=== PATIENT | male | born 1985 | race Caucasian/White ===

== ENCOUNTER 2021-09-10 07:48 | Outpatient (REF) | payer SELFPAY ==
[2021-09-10 08:14] LABS: Binax Internal Control QC Valid; Binax Now Covid-19 Ag Negative (Negative)
== END 2021-09-10 07:49 | disposition home or self-care (01) ==
LOC: HO.LAB 07:48
PROVIDERS: Visit Provider Internal Medicine
DX: Z20.822 Contact with and (suspected) exposure to COVID-19 (principal)
CPT/HCPCS: 36415

== ENCOUNTER 2022-02-27 16:41 | Emergency (ER) | payer OTHER, SELFPAY ==
--- NOTE | 2022-02-27 | ECG_ITS ---
Test Reason : CHEST PAIN Blood Pressure : / mmHG Vent. Rate : 094 BPM Atrial Rate : 094 BPM P-R Int : 136 ms QRS Dur : 086 ms QT Int : 364 ms P-R-T Axes : 060 036 037 degrees QTc Int : 455 ms Normal sinus rhythm with sinus arrhythmia Normal ECG No previous ECGs available Referred By: Generic ED Physician Electronically Signed By:ALEC POWELL
--- NOTE | ~2022-02-27 | XR_ITS ---
EXAMINATION: XR CHEST CLINICAL INFORMATION: Pain. COMPARISON: None TECHNIQUE: Frontal view of the chest was obtained. FINDINGS: No significant abnormality is noted involving the heart, lungs, mediastinum, bony thorax or soft tissues. XR/XR chest 1V IMPRESSION: Unremarkable chest exam
[2022-02-27 16:47] VITALS: BP 148/97; PULSE 103; RESP 24; TEMP 36.8; O2SAT 100; BMI 25.8
[2022-02-27 17:03] LABS: MANUAL DIFF FLAG NO
[2022-02-27 17:05] LABS: Basophils Percent Auto 0.3 % (0-2); Eosinophils Percent Auto 0.1 % (0-4); Hematocrit 45.2 % (42.0-52.0); Hemoglobin 16.2 g/dl (14.0-18.0); Imm Gran Abs Auto 0.03 X10*3/uL (0.00-0.03); Imm Gran Pct Auto 0.2 % (0.0-0.4); Lymphocytes Absolute Auto 1.8 X10*3/uL (1.2-4.9); Mean Corpuscular HGB Conc 35.8 g/dl (31.0-36.0); Mean Corpuscular Hemoglobin 31.2 pg (27.0-33.0); Mean Corpuscular Volume 87.1 fL (80.0-98.0); Mean Platelet Volume 9.4 fL (9.4-12.4); Monocytes Absolute Auto 0.6 X10*3/uL (0.1-1.2); Neutrophils Absolute Auto 9.6 x10*3/uL (2.0-8.3); Neutrophils Percent Auto 79.4 % (45-73); Platelet Count 237 X10*3/uL (160-400); Red Blood Count 5.19 X10*6/uL (4.60-5.80); White Blood Count 12.1 X10*3/uL (4.8-10.8)
[2022-02-27 17:27] LABS: Anion Gap 21 (12-20); Blood Urea Nitrogen 15 mg/dL (9-16); Carbon Dioxide 21 mmol/L (22-29); Chloride 97 mmol/L (96-108); Creatinine Clr Calc Pharmacy 114.7; Estimated Glomerular Filt Rate > 60; Glucose Random 99 mg/dL (60-115); Potassium 3.8 mmol/L (3.3-5.1); Sodium 135 mmol/L (135-145)
[2022-02-27 17:32] LABS: Troponin-I High Sensitivity < 3.5 ng/L (<3.5-35.0)
--- NOTE | 2022-02-27 17:43 | ED.CHESTPAIN ---
HPI - Chest Pain General Chief Complaint: Chest Pain Stated Complaint: Chest pain/L arm pain/Vomiting Time Seen by Provider: 02/27/22 17:42 Source: patient and family Mode of arrival: ambulatory Limitations: no limitations History of Present Illness HPI narrative: 37 yo male with hx of anxiety, alcohol abuse, GERD recent heavy drinking - drank a lot yesterday felt very sick this morning bad he has been anxious all day, developed chest pain that radiated to his L arm. He is trying to cut down on his drinking. He denies recent travel. He is very anxious. He refuses any further blood draws or IV. MD complaint: chest pain Pertinent past history: other (alcohol abuse, anxiety, GERD) Onset (ago): day(s) (this morning, worsened about 20 minutes ago) Timing of current episode: constant Prior episodes: No Onset: during rest Pain location: left chest Pain radiation: left arm Severity: moderate Quality: tightness Relieving factors: nothing Exacerbating factors: nothing Context: other (recent ETOH abuse) Associated symptoms: nausea, dyspnea and other (anxiety) Treatment prior to arrival: none Related Data Previous Rx's Medication Instructions Recorded famotidine 20 mg tablet (Pepcid) 20 mg PO DAILY PRN abdominal 02/27/22 discomfort #30 tabs hydroxyzine HCl 50 mg tablet 50 mg PO TID PRN anxiety #20 tabs 02/27/22 ondansetron 4 mg disintegrating 4 mg PO Q8H PRN nausea and 02/27/22 tablet vomiting #20 tabs Allergies Allergy/AdvReac Type Severity Reaction Status Date / Time honey Allergy Vomiting Verified 02/27/22 16:52 Review of Systems Review of Systems: Constitutional : No Weight loss, No Fever, No Chills ENT/Mouth : No sore throat, No Rhinorrhea Eyes: No Eye Pain, No Swelling Cardiovascular : pos Chest Pain, pos SOB, no Dyspnea on Exertion, No Orthopnea, No Edema, No Palpitations Respiratory : No Cough, No Sputum Gastrointestinal : pos Nausea, No Vomiting, No Diarrhea, No abdominal Pain, No Hematochezia, No Melena Genitourinary : No Dysuria, No Urinary Frequency Musculoskeletal : No joint pain, No Myalgias, No Joint Swelling Skin : No Skin Lesions, No rash Neuro : No Weakness, No Numbness, No Dizziness, No Headache Psych : pos Anxiety/Panic, No Depression Heme/Lymph: No Bruising, No Lymphadenopathy Endocrine : No Polyuria, No Polydipsia All other systems reviewed and are negative [facility] Past Medical History Attestation statement: The following information was validated with the patient. Medical History Alcohol abuse Anxiety GERD (gastroesophageal reflux disease) Social History Social History (Updated 02/27/22 @ 18:00 by Sarah Peguero DO) Alcohol intake: current Patient Tobacco Use Status: Never used Tobacco Advance Directives: No Advance Directives Information Provided: No Physical Exam Vital Signs: Vital Signs: Last Vital Signs Temp 98.2 F 02/27/22 16:47 Pulse 103 H 02/27/22 16:47 Resp 24 H 02/27/22 16:47 BP 148/97 H 02/27/22 16:47 Pulse Ox 100 02/27/22 16:47 O2 Del Method 02/27/22 16:47 BMI result Body Mass Index 25.8 Appearance: Alert. Oriented X3. No acute distress. Anxious Eyes: Pupils equal, round and reactive to light. ENT: Pharynx normal. Neck: Normal inspection. Neck supple. CVS: Normal heart rate and rhythm. Pulses normal. Respiratory: No respiratory distress. Breath sounds normal. Abdomen: Soft and mild epigastric ttp no rebound or guarding Skin: Skin warm and dry. Normal skin color. Normal skin turgor. Extremities: No lower extremity edema. No calf ttp Neuro: Oriented X 3. No motor deficit. No sensory deficit. Course Course Course Narrative: patient feels much better stable for DC MDM - Chest Pain MDM Narrative Medical decision making narrative: 37 yo male with hx of anxiety, alcohol abuse, GERD recent heavy drinking comes in with c/o not feeling well today along with anxiety, chest pain that has worsened in the last 20 minutes. He has no ACS risk factors, he has no signs of DVT, he is not hypoxic, doubt PE (tachycardia from anxiety). He has distal pulses intact doubt dissection. I suspect anxiety/esophagitis or pancreatitis from ETOH. He is refusing any further lab draws including repeat troponin to rule out ACS - we discussed one troponin would not be enough but he still refuses. PO medications for symptomatic relief ordered. Lab Data Result diagrams: 02/27/22 16:58 02/27/22 16:58 Labs: Lab Results 02/27/22 02/27/22 02/27/22 Range/Units 16:58 16:58 16:58 WBC 12.1 H (4.8-10.8) X10*3/uL RBC 5.19 (4.60-5.80) X10*6/uL Hgb 16.2 (14.0-18.0) g/dl Hct 45.2 (42.0-52.0) % MCV 87.1 (80.0-98.0) fL MCH 31.2 (27.0-33.0) pg MCHC 35.8 (31.0-36.0) g/dl RDW 12.0 (11.0-16.0) % Plt Count 237 (160-400) X10*3/uL MPV 9.4 (9.4-12.4) fL Immature Gran % (Auto) 0.2 (0.0-0.4) % Neut % (Auto) 79.4 H (45-73) % Lymph % (Auto) 15.0 L (20-40) % [place] % (Auto) 5.0 (2-11) % Eos % (Auto) 0.1 (0-4) % Baso % (Auto) 0.3 (0-2) % Lymph # (Auto) 1.8 (1.2-4.9) X10*3/uL [place] # (Auto) 0.6 (0.1-1.2) X10*3/uL Eos # (Auto) 0.0 (0.0-0.4) X10*3/uL Baso # (Auto) 0.0 (0.0-0.2) X10*3/uL Abs Immat Gran (auto) 0.03 (0.00-0.03) X10*3/uL Absolute Neuts (auto) 9.6 H (2.0-8.3) x10*3/uL Absolute Nucleated RBC 0.000 (0.0-0.012) X10*3/uL Nucleated RBC % (auto) 0.0 (0.0-0.2) /100WBC Sodium 135 (135-145) mmol/L Potassium 3.8 (3.3-5.1) mmol/L Chloride 97 (96-108) mmol/L Carbon Dioxide 21 L (22-29) mmol/L Anion Gap 21 H (12-20) BUN 15 (9-16) mg/dL Creatinine 0.91 (0.5-1.4) mg/dL Estim Creat Clear Calc 114.7 Estimated GFR > 60 Random Glucose 99 (60-115) mg/dL Calcium 10.0 (8.4-10.2) mg/dL Troponin I High Sens < 3.5 (<3.5-35.0) ng/L Lipase 11 (8-78) U/L ECG Data ECG #1: Attestation: I personally reviewed and interpreted this ECG as follows: ECG interpretation date: 02/27/22 ECG interpretation time: 17:43 Interpretation: Rate: 94 Rhythm: NSR Cosmos: normal Normal P waves. Normal CHASIDY. Normal QRS complex. ST T wave : normal no CLIFFORD qTC: normal prior studies: no acute ischemia The study has been interpreted contemporaneously by me. . Discharge Plan Discharge Clinical Impression: Atypical chest pain, Gastroesophageal reflux disease, Anxiety Patient Disposition: Home, Self-Care Instructions: Chest Pain (ED), Gastroesophageal Reflux Disease (ED), Anxiety (ED) Additional Instructions: return to ED for any worsening symptoms or concerns we were unable to draw a second test for you heart. Given this we cannot 100% say that testing for your heart was normal if you change your mind please return for further testing. Please follow up with your doctor Prescriptions: New famotidine [Pepcid] 20 mg tablet 20 mg PO DAILY PRN (Reason: abdominal discomfort) Qty: 30 0RF ondansetron 4 mg tablet,disintegrating 4 mg PO Q8H PRN (Reason: nausea and vomiting) Qty: 20 0RF hydroxyzine HCl 50 mg tablet 50 mg PO TID PRN (Reason: anxiety) Qty: 20 0RF Stand Alone Forms: Work/School Release
[2022-02-27] MEDS: Magnesium Hydrox/Alum Hydrox 30 ML ORAL.SUSP 15 ML PO (18:23)
[2022-02-27] MEDS: LORazepam 1 MG TABLET PO (18:23)
[2022-02-27] MEDS: Famotidine 20 MG TABLET PO (18:23)
[2022-02-27] MEDS: Ondansetron ODT 4 MG TAB.RAPDIS TRANSLINGU (18:23)
[2022-02-27] MEDS: Lidocaine HCl Viscous 2 % 15 ML SOLUTION MUCOUS MEM (18:24)
--- NOTE | 2022-02-27 18:29 | PC.NURSE ---
patient a/o x4 . pupils equal and reactive . lungs clear . skin clammy , patient appears anxious . abdomen soft non-distended . positive bowel sounds . patient appears anxious and has history of panic attacks . patient has been medicated . aware of plan of care.
[2022-02-27 18:36] LABS: Lipase 11 U/L (8-78)
== END 2022-02-27 20:09 | disposition home or self-care (01) ==
PROVIDERS: Emergency Provider Emergency Medicine
DX: R07.89 Other chest pain (principal); K21.9 Gastro-esophageal reflux disease without esophagitis; F41.9 Anxiety disorder, unspecified; F10.10 Alcohol abuse, uncomplicated
CPT/HCPCS: 36415; 71045; 80048; 83690; 84484; 85025; 93005; 99283; 99284

== ENCOUNTER 2023-09-09 16:53 | Emergency (ER) | payer OTHER, SELFPAY ==
[2023-09-09 17:28] VITALS: BP 146/98; PULSE 133; RESP 18; TEMP 37.1; O2SAT 96; BMI 26.9
--- NOTE | 2023-09-09 17:28 | ED.GENADULT ---
HPI - General Adult General Chief complaint: ETOH/Substance Use Stated complaint: cold, alcohol withdrawal Related Data Previous Rx's Medication Instructions Recorded famotidine 20 mg tablet (Pepcid) 20 mg PO DAILY PRN abdominal 02/27/22 discomfort #30 tabs hydroxyzine HCl 50 mg tablet 50 mg PO TID PRN anxiety #20 tabs 02/27/22 ondansetron 4 mg disintegrating 4 mg PO Q8H PRN nausea and 02/27/22 tablet vomiting #20 tabs Allergies Allergy/AdvReac Type Severity Reaction Status Date / Time honey Allergy Vomiting Verified 09/09/23 17:27 [facility] Past Medical History Onset Date is defined in the Problem List Problems that require an onset date and time if occurred within 24 hrs of arrival to the ED Aortic Dissection and Rupture; Neurologic impairment; Cardiopulmonary Arrest; Endotracheal Intubation; Insertion or Replacement of Mechanical Circulatory Assist Device Medical History Alcohol abuse Anxiety GERD (gastroesophageal reflux disease) Social History Social History (Updated 02/27/22 @ 18:00 by Elizabeth Peguero DO) Alcohol intake: current Patient Tobacco Use Status: Never used Tobacco Advance Directives: No Advance Directives Information Provided: No Physical Exam ED Vital Signs: BMI result Body Mass Index 26.9 Course Course Course Narrative: This is a rapid medical exam. Deferred additional HPI, ROS, PE to primary provider. 38 yo male with no known medical history here with concern for URI symptoms, also has been drinking daily (sleeve of whiskey). Recently left detox. Unsure if he is looking for detox... Last drink 30 minutes DRAW HAND Will obtain labs, RIVERA, viral testing Tachycardic in triage, bp stable, does not appear to be in active withdrawal. Medical Decision Making Lab Data 09/09/23 17:58 09/09/23 17:58 Labs: Lab Results 09/09/23 Range/Units 17:58 WBC 4.8 (4.8-10.8) X10*3/uL RBC 4.90 (4.60-5.80) X10*6/uL Hgb 15.6 (14.0-18.0) g/dl Hct 44.9 (42.0-52.0) % MCV 91.6 (80.0-98.0) fL MCH 31.8 (27.0-33.0) pg MCHC 34.7 (31.0-36.0) g/dl RDW 15.0 (11.0-16.0) % Plt Count 156 L D (160-400) X10*3/uL MPV 9.5 (9.4-12.4) fL Immature Gran % (Auto) 0.4 (0.0-0.4) % Neut % (Auto) 57.0 (45-73) % Lymph % (Auto) 32.7 (20-40) % [place] % (Auto) 8.9 (2-11) % Eos % (Auto) 0.4 (0-4) % Baso % (Auto) 0.6 (0-2) % Lymph # (Auto) 1.6 (1.2-4.9) X10*3/uL [place] # (Auto) 0.4 (0.1-1.2) X10*3/uL Eos # (Auto) 0.0 (0.0-0.4) X10*3/uL Baso # (Auto) 0.0 (0.0-0.2) X10*3/uL Abs Immat Gran (auto) 0.02 (0.00-0.03) X10*3/uL Absolute Neuts (auto) 2.8 (2.0-8.3) x10*3/uL Absolute Nucleated RBC 0.000 (0.0-0.012) X10*3/uL Nucleated RBC % (auto) 0.0 (0.0-0.2) /100WBC Sodium 144 (135-145) mmol/L Potassium 3.9 (3.3-5.1) mmol/L Chloride 102 (96-108) mmol/L Carbon Dioxide 27 (22-29) mmol/L Anion Gap 19 (12-20) BUN 11 (9-16) mg/dL Creatinine 0.66 (0.5-1.4) mg/dL Estim Creat Clear Calc 156.6 Estimated GFR > 60 Random Glucose 98 (60-115) mg/dL Calcium 9.8 (8.4-10.2) mg/dL Magnesium 2.0 (1.6-2.6) mg/dL Total Bilirubin 0.2 (0.0-1.0) mg/dL Direct Bilirubin < 0.2 (0.0-0.5) mg/dL AST 61 H (5-37) U/L ALT 57 H (0-40) U/L Alkaline Phosphatase 101 (39-117) U/L Total Protein 8.1 H (6.5-8.0) g/dL Albumin 4.6 (3.5-5.0) g/dL Ethyl Alcohol 311 H* mg/dL Influenza Type A (PCR) NEGATIVE (Negative) Influenza Type B (PCR) NEGATIVE (Negative) RSV RNA Qual (PCR) NEGATIVE (Negative) SARS-CoV-2 RNA (RT-PCR) NEGATIVE (Negative) Discharge Plan Discharge Clinical Impression: Alcohol use disorder Patient Disposition: Left W/O Completing Treatment Prescriptions: No Action famotidine [Pepcid] 20 mg tablet 20 mg PO DAILY PRN (Reason: abdominal discomfort) Qty: 30 0RF ondansetron 4 mg tablet,disintegrating 4 mg PO Q8H PRN (Reason: nausea and vomiting) Qty: 20 0RF hydroxyzine HCl 50 mg tablet 50 mg PO TID PRN (Reason: anxiety) Qty: 20 0RF Discharge Date/Time: 09/09/23 21:02
== END 2023-09-09 21:02 | disposition left against medical advice (07) ==
PROVIDERS: Emergency Provider Emergency Medicine; PCP Physician Assistant
DX: F10.10 Alcohol abuse, uncomplicated (principal); Y90.8 Blood alcohol level of 240 mg/100 ml or more; Z20.822 Contact with and (suspected) exposure to COVID-19; Z20.828 Contact with and (suspected) exposure to other viral communicable diseases; Z79.899 Other long term (current) drug therapy
CPT/HCPCS: 0241U; 36415; 80048; 80076; 80307; 83735; 85025; 93005; 99283

== ENCOUNTER → 2023-09-09 17:33 | Outpatient (BNV) | payer OTHER, SELFPAY | PROVIDERS: Emergency Provider Emergency Medicine; PCP Physician Assistant; Visit Provider Internal Medicine Cardiovascular Disease | DX: R00.0 Tachycardia, unspecified (principal) | CPT/HCPCS: 93010 ==

== ENCOUNTER 2023-11-01 17:58 | Emergency (ER) | payer SELFPAY ==
[2023-11-01 18:02] VITALS: BP 116/85; BP 140/88; PULSE 125; PULSE 142; RESP 16; TEMP 36.6; O2SAT 100; O2SAT 98; BMI 26.6
[2023-11-01 18:22] VITALS: RESP 14
--- NOTE | 2023-11-01 18:23 | PC.NURSE ---
Pt presents to the ED reporting daily drinking x1 month after losing his job. Pt states he has been to detox before and that it helped him to an extent. Pt is also reporting SI without a plan. Pt is tachy and with some anxiety, reporting he has gone through withdrawal before. Pt is calm and cooperative, appears to be in no apparent distress at this time. Respirations even and unlabored, continue plan of care for medical clearance then CARE team assessment
[2023-11-01] MEDS: LORazepam 1 MG TABLET 2 MG PO ×2 (18:41→20:09)
--- NOTE | 2023-11-01 19:48 | ED.GENADULT ---
HPI - General Adult General Chief complaint: Psychiatric Symptoms Stated complaint: SEEKING DETOX SI Time Seen by Provider: 11/01/23 18:37 History of Present Illness HPI narrative: The patient is a 38-year-old male with a history of alcoholism. He says that about 3 months ago last July he did a 28 detox program in [place]. He was sober for a while after that but has been drinking heavily for at least the last month. He says he had been working at [employer] but had trouble with transportation and so lost his job about a month ago. He says he has been staying at home and staying alone in his apartment drinking 20 nips per day for the last month. He says that yesterday he decided he needed to stop drinking and so stopped drinking. Today he felt very shaky and thought he might be starting to experience alcohol withdrawal so he called 911. He also feels depressed because of his loss of a job and his drinking. He feels suicidal although he does not have a plan. The patient says he has had a cough for the last month. He is a pack-a-day smoker. He does not think he has had a fever Related Data Home Medications Medication Instructions Recorded Confirmed sertraline 50 mg tablet 50 mg PO DAILY 11/01/23 11/01/23 Allergies Allergy/AdvReac Type Severity Reaction Status Date / Time honey Allergy Vomiting Verified 11/01/23 18:26 Review of Systems Review of Systems: Yes all other systems are reviewed and are negative REPLACED BY [facility] Past Medical History Medical History Alcohol abuse Anxiety GERD (gastroesophageal reflux disease) Social History Social History (Updated 02/27/22 @ 18:00 by Elizabeth Peguero DO) Alcohol intake: current Alcohol intake frequency: 3 or more drinks per day Alcohol type: hard liquor Patient Tobacco Use Status: Never used Tobacco Smoked in Last 30 Days: Yes Use of substances other than those prescribed or required for medical reasons: No Advance Directives: No Advance Directives Information Provided: No Physical Exam ED Vital Signs: Vital Signs - 24 hr 11/01/23 18:02 11/01/23 18:22 11/01/23 21:00 Temperature 97.8 F 98.9 F Pulse Rate 142 H 111 H Respiratory Rate 16 14 17 Blood Pressure 116/85 142/98 H Pulse Oximetry 98 94 Oxygen Delivery Method Room Air Room Air BMI result Body Mass Index 26.6 Const Other: The patient is awake and alert. He seems mildly restless. He is pleasant and cooperative. He does not seem in overt distress. HENMT Other: Posterior pharynx is unremarkable. Mucous membranes moist. Face is symmetrical. Eyes Other: Pupils are mildly large but reactive to light. Extraocular movements intact. Neck Other: No JVD. Moving his neck easily. Resp Effort & Inspection: normal respiratory effort Auscultation: clear to auscultation bilaterally Cardio Rate: regular rate Rhythm: regular rhythm Heart sounds: S1 normal heart sound present and S2 normal heart sound present GI Other: Abdomen is soft and nontender Skin Other: Skin is pale and dry Neuro Other: The patient is awake, alert, oriented, appropriate. Mental status seems clear. His pupils seem mildly large but are reactive. Face is symmetrical. Speech is clear. Gait is steady. Mildly tremulous Extrem Other: No peripheral edema. Medications Administered Discontinued Medications Generic Name Dose Route Start Last Admin Trade Name Agusto PRN Reason Stop Dose Admin Lidocaine HCl 1 appl 11/01/23 21:19 11/01/23 22:01 Lidocaine 4 % Cream Kit TOPICAL 11/01/23 21:20 1 appl ONCE ONE Administration Protocol Lorazepam 2 mg 11/01/23 18:37 11/01/23 18:41 Lorazepam 1 Mg Tablet PO 11/01/23 18:38 2 mg ONCE ONE Administration Lorazepam 2 mg 11/01/23 19:46 11/01/23 20:09 Lorazepam 1 Mg Tablet PO 11/01/23 19:47 2 mg ONCE ONE Administration Medical Decision Making Medical Decision Making [facility] Narrative: The patient is a 38-year-old alcoholic who arrived by ambulance stating that he was feeling very shaky and depressed. He reported that he had been taking 20 nips daily for the last month but that he stopped drinking yesterday because he realized he was drinking too much. [place] depressed and had vague suicidal ideation but no definite plan. On arrival the patient had a heart rate of 142. He was not hypertensive. He was anxious and requesting something for his anxiety. The patient was given 2 mg of oral lorazepam. This was repeated awhile later. The patient was extremely anxious about the prospect of phlebotomy at 1 point said that he might prefer to leave simply to avoid a needlestick. Ultimately he consented to allowing us to apply LMX and he was then phlebotomized. The patient's labs show an alcohol level of 156. Urine tox screen is negative. He said that he had been coughing a lot over the last month. He has a negative chest x-ray. Normal white count and differential. I do not think he has a pneumonia or other significant infectious process. I think his tachycardia is much more likely related to anxiety and some degree of early alcohol withdrawal. The patient says he has never had an alcohol withdrawal seizure. The patient at this point is medically clear for evaluation by the care team. I will be signing the patient out at the end of my shift. Lab Data 11/01/23 21:54 11/01/23 21:54 Labs: Lab Results 11/01/23 11/01/23 Range/Units 21:54 Unknown WBC 6.1 (4.8-10.8) X10*3/uL RBC 5.18 (4.60-5.80) X10*6/uL Hgb 16.8 (14.0-18.0) g/dl Hct 47.4 (42.0-52.0) % MCV 91.5 (80.0-98.0) fL MCH 32.4 (27.0-33.0) pg MCHC 35.4 (31.0-36.0) g/dl RDW 13.0 (11.0-16.0) % Plt Count 166 (160-400) X10*3/uL MPV 9.0 L (9.4-12.4) fL Immature Gran % (Auto) 0.5 H (0.0-0.4) % Neut % (Auto) 65.9 (45-73) % Lymph % (Auto) 25.3 (20-40) % [place] % (Auto) 8.0 (2-11) % Eos % (Auto) 0.0 (0-4) % Baso % (Auto) 0.3 (0-2) % Lymph # (Auto) 1.5 (1.2-4.9) X10*3/uL [place] # (Auto) 0.5 (0.1-1.2) X10*3/uL Eos # (Auto) 0.0 (0.0-0.4) X10*3/uL Baso # (Auto) 0.0 (0.0-0.2) X10*3/uL Abs Immat Gran (auto) 0.03 (0.00-0.03) X10*3/uL Absolute Neuts (auto) 4.0 (2.0-8.3) x10*3/uL Absolute Nucleated RBC 0.000 (0.0-0.012) X10*3/uL Nucleated RBC % (auto) 0.0 (0.0-0.2) /100WBC Sodium 139 (135-145) mmol/L Potassium 3.8 (3.3-5.1) mmol/L Chloride 101 (96-108) mmol/L Carbon Dioxide 23 (22-29) mmol/L Anion Gap 19 (12-20) BUN 9 (9-16) mg/dL Creatinine 0.78 (0.5-1.4) mg/dL Estim Creat Clear Calc 128.4 Estimated GFR > 60 Random Glucose 100 (60-115) mg/dL Calcium 9.4 (8.4-10.2) mg/dL Total Bilirubin 0.5 (0.0-1.0) mg/dL AST 42 H (5-37) U/L ALT 31 (0-40) U/L Alkaline Phosphatase 87 (39-117) U/L Total Protein 8.4 H (6.5-8.0) g/dL Albumin 4.5 (3.5-5.0) g/dL Urine Color Yellow Urine Appearance Clear Urine pH 7.0 (5.0-9.0) Ur Specific [place] 1.020 (1.005-1.025) Urine Protein 300 (3+) H (Neg-Trace) mg/dL Urine Glucose (UA) Negative (Negative) mg/dL Urine Ketones Trace (Negative) mg/dL Urine Blood Trace H (Negative) Urine Nitrite Negative (Negative) Ur Leukocyte Esterase Negative (Negative) Urine RBC 3-5 H (0-2) /HPF Urine WBC 6-10 H (0-5) /HPF Ur Squamous Epith Cells 3-5 (0-2) /HPF Urine Bacteria None Seen (None Seen) Hyaline Casts 0-2 (0-2) /LPF Urine Opiates Screen Not Detected (Not Detect) Urine Fentanyl Screen Not Detected (Not Detect) Ur Barbiturates Screen Not Detected (Not Detect) Ur Phencyclidine Scrn Not Detected (Not Detect) Ur Amphetamines Screen Not Detected (Not Detect) U Benzodiazepines Scrn Not Detected (Not Detect) Urine Cocaine Screen Not Detected (Not Detect) U Marijuana (THC) Screen Not Detected (Not Detect) Ethyl Alcohol 156 mg/dL Influenza Type A (PCR) NEGATIVE (Negative) Influenza Type B (PCR) NEGATIVE (Negative) RSV RNA Qual (PCR) NEGATIVE (Negative) SARS-CoV-2 RNA (RT-PCR) NEGATIVE (Negative) Discharge Plan Discharge Clinical Impression: Depression, Anxiety, Alcohol use disorder Patient Disposition: Still a Patient Prescriptions: No Action sertraline 50 mg tablet 50 mg PO DAILY Interventions: [place]-Suicide Risk Severity Scale Last Done: 11/01/23 18:19
[2023-11-01 20:05] LABS: Appearance Urine Clear; Color Urine Yellow; Glucose Urine UA Negative (Negative); Leukocyte Esterase Urine Negative (Negative); Nitrite Urine Negative (Negative); UMIC TRIGGER UACC YES; Urine Blood Trace (Negative); Urine Ketones Trace mg/dL (Negative); Urine Protein 300 (3+) mg/dL (Neg-Trace)
[2023-11-01 20:09] LABS: Amphetamine Screen Urine Not Detected (Not Detect); Barbiturates, Urine Not Detected (Not Detect); Benzodiazepines Screen Urine Not Detected (Not Detect); Cannabinoid Screen Urine Not Detected (Not Detect); Cocaine Screen Urine Not Detected (Not Detect); Fentanyl, urine Not Detected (Not Detect); Opiate Screen Urine Not Detected (Not Detect); Phencyclidine Screen Urine Not Detected (Not Detect)
[2023-11-01 20:37] LABS: Bacteria Urine None Seen (None Seen); Hyaline Casts Urine 0-2 /LPF (0-2); UACC Culture Trigger YES
[2023-11-01 20:38] LABS: Influenza A PCR NEGATIVE (Negative); Influenza B PCR NEGATIVE (Negative); Resp Syncy Virus RNA Qual PCR NEGATIVE (Negative); SARS COV2 PCR INHOUSE NEGATIVE (Negative)
[2023-11-01 21:00] VITALS: BP 142/98; PULSE 111; RESP 17; TEMP 37.2; O2SAT 94
[2023-11-01 22:00] LABS: Basophils Percent Auto 0.3 % (0-2); Hematocrit 47.4 % (42.0-52.0); Hemoglobin 16.8 g/dl (14.0-18.0); Imm Gran Abs Auto 0.03 X10*3/uL (0.00-0.03); Imm Gran Pct Auto 0.5 % (0.0-0.4); Lymphocytes Absolute Auto 1.5 X10*3/uL (1.2-4.9); Lymphocytes Percent Auto 25.3 % (20-40); MANUAL DIFF FLAG NO; Mean Corpuscular HGB Conc 35.4 g/dl (31.0-36.0); Mean Corpuscular Hemoglobin 32.4 pg (27.0-33.0); Mean Corpuscular Volume 91.5 fL (80.0-98.0); Monocytes Absolute Auto 0.5 X10*3/uL (0.1-1.2); Neutrophils Percent Auto 65.9 % (45-73); Platelet Count 166 X10*3/uL (160-400); Red Blood Count 5.18 X10*6/uL (4.60-5.80); White Blood Count 6.1 X10*3/uL (4.8-10.8)
[2023-11-01] MEDS: Lidocaine 4 % Cream KIT 1 APPL TOPICAL (22:01)
[2023-11-01 22:15] LABS: Alanine Aminotransferase 31 U/L (0-40); Albumin Level 4.5 g/dL (3.5-5.0); Alkaline Phosphatase 87 U/L (39-117); Anion Gap 19 (12-20); Aspartate Amino Transferase 42 U/L (5-37); Bilirubin Total 0.5 mg/dL (0.0-1.0); Blood Urea Nitrogen 9 mg/dL (9-16); Calcium 9.4 mg/dL (8.4-10.2); Carbon Dioxide 23 mmol/L (22-29); Chloride 101 mmol/L (96-108); Creatinine Clr Calc Pharmacy 128.4; Estimated Glomerular Filt Rate > 60; Ethanol 156 mg/dL; Glucose Random 100 mg/dL (60-115); Potassium 3.8 mmol/L (3.3-5.1); Sodium 139 mmol/L (135-145); Total Protein 8.4 g/dL (6.5-8.0)
[2023-11-01 23:36] VITALS: BP 134/81; PULSE 107; RESP 17; TEMP 37.1; O2SAT 98
[2023-11-01] MEDS: chlordiazePOXIDE HCl 5 MG CAPSULE 10 MG PO (23:48)
[2023-11-02 04:05] VITALS: BP 148/97; PULSE 100; RESP 17; TEMP 36.6; O2SAT 97
[2023-11-02] MEDS: chlordiazePOXIDE HCl 25 MG CAPSULE 50 MG PO ×3 (04:10→14:29)
[2023-11-02 04:46] VITALS: BP 164/103; PULSE 106; RESP 14; TEMP 36.8; O2SAT 98
[2023-11-02 06:08] VITALS: BP 138/88; PULSE 71; RESP 14; TEMP 36.4; O2SAT 96
--- NOTE | 2023-11-02 07:10 | PC.NURSE ---
Assumed care of patient at 0700, patient appears to be sleeping, respirations even and unlabored, no apparent distress. Per previous RN, patient did need to be medicated per CIWA scale. Continue plan of care for potential detox bed placement
[2023-11-02 08:18] VITALS: BP 127/84; PULSE 80; RESP 20; TEMP 36.8; O2SAT 97
--- NOTE | 2023-11-02 11:58 | PC.NURSE ---
Pts initital CIWA this morning did not need to be treated, second CIWA scored higher, patient given Librium with positive effects at this time
[2023-11-02] MEDS: LORazepam 1 MG TABLET 2 MG PO (13:28)
--- NOTE | 2023-11-02 15:12 | PC.NURSE ---
Pt requesting to leave, DO aware. Pt does have some shakes, but other symptoms have resolved, see latest CIWA
== END 2023-11-02 15:18 | disposition home or self-care (01) ==
PROVIDERS: Emergency Provider Emergency Medicine; PCP Physician Assistant
DX: F32.A Depression, unspecified (principal); F41.9 Anxiety disorder, unspecified; F10.20 Alcohol dependence, uncomplicated; Y90.6 Blood alcohol level of 120-199 mg/100 ml; Z11.52 Encounter for screening for COVID-19; Z20.828 Contact with and (suspected) exposure to other viral communicable diseases
CPT/HCPCS: 0241U; 36415; 80053; 80307; 81001; 81003; 85025; 87086; 99285; S9485

== ENCOUNTER 2023-11-14 16:15 | Emergency (ER) | payer SELFPAY ==
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
--- NOTE | ~2023-11-14 | CT_ITS ---
EXAMINATION: CT ANGIOGRAM CHEST CLINICAL INFORMATION: Trauma COMPARISON: None available. TECHNIQUE: Multiple axial images were obtained through the chest after the administration of 85 mL of Omnipaque 350 intravenous contrast. Extensive vascular post-processing including two-dimensional and three-dimensional reformatted images were created and reviewed on an independent workstation. This CT examination was performed using dose optimization techniques as appropriate, variously including the following: *Automated exposure control *Adjustment of mA and/or kV according to patient size (this includes techniques or standardized protocols for targeted exams where dose is matched to indication/reason for exam; i.e. extremities or head) *Use of iterative reconstruction technique DLP: 626 mGy-cm FINDINGS: The lungs are clear. No pleural effusion pleural thickening or pneumothorax. Normal heart size. No pericardial effusion. Normal thoracic aorta and pulmonary arteries. No adenopathy. No chest wall mass or enlarged axillary lymph nodes. No fracture. CT/CT angio chest aorta IMPRESSION: Unremarkable examination. Fleischner guidelines were followed.
--- NOTE | ~2023-11-14 | CT_ITS ---
EXAMINATION: CT CERVICAL SPINE WITHOUT CONTRAST CLINICAL INFORMATION: Fall. Head laceration. Confusion. Pain. COMPARISON: None available. TECHNIQUE: Noncontrast computed tomography of the cervical spine was performed. This CT examination was performed using dose optimization techniques as appropriate, variously including the following: *Automated exposure control *Adjustment of mA and/or kV according to patient size (this includes techniques or standardized protocols for targeted exams where dose is matched to indication/reason for exam; i.e. extremities or head) *Use of iterative reconstruction technique DLP: 478.83 mGy-cm FINDINGS: Cervical spinal alignment is anatomic in the sagittal projection. The vertebral bodies demonstrate preserved stature. Intervertebral disc space heights are preserved. The facet joints demonstrate anatomic alignment bilaterally. The C1-C2 relationship is anatomic. The dens is intact. Prevertebral soft tissue is normal in appearance. Paraspinal soft tissue is normal in appearance. There is no acute cervical spine fracture. The mastoid air cells are well-aerated. Lung apices are clear. The thyroid gland is normal in appearance. CT/CT cervical spine wo IV con IMPRESSION: No acute osseous cervical spine abnormality. Fleischner guidelines were followed.
--- NOTE | ~2023-11-14 | CT_ITS ---
EXAMINATION: CT FACIAL BONES WITHOUT CONTRAST CLINICAL INFORMATION: Head laceration. Fall. Increased confusion. Pain. COMPARISON: None available. TECHNIQUE: Noncontrast computed tomography of the facial bones was performed. This CT examination was performed using dose optimization techniques as appropriate, variously including the following: *Automated exposure control *Adjustment of mA and/or kV according to patient size (this includes techniques or standardized protocols for targeted exams where dose is matched to indication/reason for exam; i.e. extremities or head) *Use of iterative reconstruction technique DLP: 1652 mGy-cm FINDINGS: There is no facial bone fracture. The paranasal sinuses are well aerated. There is minimal mucosal disease along the anterior margin of the dominant right sphenoid sinus. The nasal septum is deviated towards the left. There is a leftward projecting bony spur. The mastoid air cells are well aerated. The orbits are symmetric and within normal limits. There is right frontal scalp/right periorbital soft tissue swelling. The visualized brain parenchyma is normal in appearance. CT/CT facial bones wo IV con IMPRESSION: No acute facial bone fracture. There is right frontal scalp/right periorbital soft tissue swelling
--- NOTE | ~2023-11-14 | CT_ITS ---
EXAMINATION: CT ANGIOGRAM ABDOMEN AND PELVIS CLINICAL INFORMATION: Trauma COMPARISON: None available. TECHNIQUE: Multiple axial images were obtained through the abdomen and pelvis following the administration of 85 mL of Omnipaque 350 intravenous contrast. Images were reviewed on a dedicated 3-D workstation. This CT examination was performed using dose optimization techniques as appropriate, variously including the following: *Automated exposure control *Adjustment of mA and/or kV according to patient size (this includes techniques or standardized protocols for targeted exams where dose is matched to indication/reason for exam; i.e. extremities or head) *Use of iterative reconstruction technique DLP: 626 mGy-cm FINDINGS: The abdominal aorta is normal in caliber. Celiac axis and SMA and JONNA are patent. There are single patent renal arteries bilaterally. The common internal and external iliac and common femoral arteries are patent Normal liver, gallbladder, spleen, pancreas, adrenal glands and kidneys. Normal bladder and prostate gland. Normal small and large bowel. Normal appendix. No ascites or free air. No hernia. No fracture. CT/CT angio abdomen pelvis IMPRESSION: Unremarkable examination. Fleischner guidelines were followed.
[2023-11-14 16:18] VITALS: BP 142/84; PULSE 115; O2SAT 100
[2023-11-14 16:24] VITALS: BP 112/87; PULSE 84; RESP 16; TEMP 37; O2SAT 100; BMI 27.4
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
[2023-11-14] MEDS: 0.9 % Sodium Chloride 500 ML 999 ML IV (17:02)
[2023-11-14 17:04] LABS: MANUAL DIFF FLAG NO
[2023-11-14 17:05] LABS: Basophils Percent Auto 0.6 % (0-2); Eosinophils Percent Auto 0.4 % (0-4); Imm Gran Abs Auto 0.02 X10*3/uL (0.00-0.03); Imm Gran Pct Auto 0.3 % (0.0-0.4); Lymphocytes Absolute Auto 1.8 X10*3/uL (1.2-4.9); Mean Corpuscular HGB Conc 34.9 g/dl (31.0-36.0); Mean Corpuscular Hemoglobin 32.8 pg (27.0-33.0); Mean Corpuscular Volume 94.1 fL (80.0-98.0); Mean Platelet Volume 9.2 fL (9.4-12.4); Monocytes Absolute Auto 0.6 X10*3/uL (0.1-1.2); Monocytes Percent Auto 8.3 % (2-11); Neutrophils Absolute Auto 4.3 x10*3/uL (2.0-8.3); Neutrophils Percent Auto 63.4 % (45-73); Platelet Count 226 X10*3/uL (160-400); Red Blood Count 4.57 X10*6/uL (4.60-5.80); Red Cell Distribution Width 12.6 % (11.0-16.0); White Blood Count 6.8 X10*3/uL (4.8-10.8)
[2023-11-14 17:13] LABS: INTERNATIONAL NORM RATIO 0.9 (0.9-1.1); Prothrombin Time 10.6 SEC (11.1-13.3)
[2023-11-14 17:25] LABS: Alanine Aminotransferase 28 U/L (0-40); Albumin Level 4.3 g/dL (3.5-5.0); Alkaline Phosphatase 81 U/L (39-117); Aspartate Amino Transferase 31 U/L (5-37); Bilirubin Direct < 0.2 mg/dL (0.0-0.5); Bilirubin Total 0.2 mg/dL (0.0-1.0); Ethanol 337 mg/dL; Lipase 62 U/L (8-78); Total Protein 7.7 g/dL (6.5-8.0)
[2023-11-14 17:36] LABS: Appearance Urine Clear; Color Urine Yellow; Glucose Urine UA Negative (Negative); Leukocyte Esterase Urine Negative (Negative); Nitrite Urine Negative (Negative); PH 5.5 (5.0-9.0); Specific Gravity - Urine <= 1.005 (1.005-1.025); Urine Blood Negative (Negative); Urine Ketones Negative (Negative); Urine Protein Negative (Neg-Trace)
[2023-11-14 17:38] LABS: Bacteria Urine None Seen (None Seen); Hyaline Casts Urine 0-2 /LPF (0-2); RBC Urine 0-2 /HPF (0-2); Squamous Epithelial Cell Urine 0-2 /HPF (0-2); WBC Urine 0-5 /HPF (0-5)
[2023-11-14] MEDS: iohexoL 350 MG/ML 100 ML INFUS..BTL 85 ML IV (17:54)
[2023-11-14 18:59] VITALS: BP 131/73; PULSE 105; RESP 18; TEMP 36.9; O2SAT 98
[2023-11-14] MEDS: Ibuprofen 400 MG TABLET PO (21:07)
[2023-11-14] MEDS: Acetaminophen 325 MG TABLET 975 MG PO (21:08)
[2023-11-14 21:23] LABS: Anion Gap 14 (12-20); Blood Urea Nitrogen 11 mg/dL (9-16); Calcium 9.3 mg/dL (8.4-10.2); Carbon Dioxide 25 mmol/L (22-29); Chloride 109 mmol/L (96-108); Estimated Glomerular Filt Rate > 60; Glucose Random 98 mg/dL (60-115); Potassium 3.5 mmol/L (3.3-5.1); Sodium 144 mmol/L (135-145)
[2023-11-15 01:08] VITALS: BP 147/94; PULSE 94; RESP 16; TEMP 36.8; O2SAT 98
[2023-11-15] MEDS: Lidocaine HCl Viscous 2 % 15 ML SOLUTION MUCOUS MEM (01:24)
[2023-11-15] MEDS: Magnesium Hydrox/Alum Hydrox 30 ML ORAL.SUSP 15 ML PO (01:24)
[2023-11-15] MEDS: Ibuprofen 400 MG TABLET PO (06:45)
[2023-11-15] MEDS: Acetaminophen 325 MG TABLET 650 MG PO (06:45)
== END 2023-11-15 07:11 | disposition home or self-care (01) ==
PROVIDERS: Emergency Medicine; Emergency Provider Student in an Organized Health Care Education/Training Program; PCP Physician Assistant
DX: S00.81XA Abrasion of other part of head, initial encounter (principal); R51.9 Headache, unspecified; R07.89 Other chest pain; R22.0 Localized swelling, mass and lump, head; R41.0 Disorientation, unspecified; M54.2 Cervicalgia; W01.10XA Fall on same level from slipping, tripping and stumbling with subsequent striking against unspecified object, initial encounter; Y93.9 Activity, unspecified; Y92.410 Unspecified street and highway as the place of occurrence of the external cause; Y99.8 Other external cause status; Z79.899 Other long term (current) drug therapy
CPT/HCPCS: 36415; 70450; 70486; 71275; 72125; 74174; 80048; 80076; 80307; 81001; 82550; 83690; 85025; 85610; 96360; 96361; 99285; Q9967

== ENCOUNTER 2023-12-04 22:26 | Emergency (ER) | payer MEDICAID, SELFPAY ==
--- NOTE | ~2023-12-04 | CT_ITS ---
EXAMINATION: CT cervical spine wo IV con, CT head/brain wo IV con INDICATION INFORMATION: Reason for Exam etoh, multiple falls COMPARISON: None TECHNIQUE: Separate noncontrast CT examinations of the head and cervical spine were performed. Coronal and sagittal images were created for each examination at the technologist workstation. This CT examination was performed using dose optimization techniques as appropriate, variously including the following: *Automated exposure control *Adjustment of mA and/or kV according to patient size (this includes techniques or standardized protocols for targeted exams where dose is matched to indication/reason for exam; i.e. extremities or head) *Use of iterative reconstruction technique DLP: 1157.79 mGy-cm FINDINGS: Head: No acute osseous or soft tissue abnormality. The mastoid air cells and visualized portions of the paranasal sinuses are well aerated. Acute right holohemispheric subdural hematoma measuring up to 1 cm in thickness and smaller left cerebral convexity subdural hematoma, primarily along the left temporal lobe measuring up to 4 mm in thickness with subdural blood products extending along the superior left tentorial leaflet measuring up to 1 cm. There are also small subdural blood products layering along the falx and right tentorial leaflet. Trace hyperdensity along the clivus measuring up to 3 mm in thickness likely represent small subdural hematoma. No significant mass effect or midline shift. There is no evidence of acute territorial infarction. Ricks to white matter differentiation is well preserved. No hydrocephalus. No significant volume loss. There is no abnormal attenuation within the brain parenchyma. Cervical spine: There is a small avulsion fracture involving the posterior medial aspect of the left occipital condyle (series 502 image 81 and series 4 image 55). Thin hyperdensity along the left greater than right ventral aspect of the cervical spinal canal at the craniocervical junction likely represents small volume epidural hemorrhage. There is no other evidence of acute cervical spine fracture. Vertebral bodies remain normal in height. Slight reversal of usual cervical lordosis. Mild multilevel cervical spondylosis. No pre- or paravertebral soft tissue abnormality is identified. Visualized portions of the lung apices are unremarkable. The thyroid gland is unremarkable. CT/CT cervical spine wo IV con IMPRESSION: 1. Acute right holohemispheric subdural hematoma measuring up to 1 cm in thickness and smaller left cerebral convexity subdural hematoma primarily along the left temporal lobe measuring up to 4 mm in thickness with larger subdural hematoma extending along the superior left tentorial leaflet. Small falcine, right tentorial, and retroclival subdural blood products are also identified. No significant mass effect or midline shift. 2. There is a small avulsion fracture involving the posteromedial aspect of the left occipital condyle. Thin hyperdensity along the left greater than right ventral spinal canal at the craniocervical junction likely represents small volume epidural hemorrhage without evidence of significant spinal canal stenosis 3. No other evidence of cervical spine fracture or traumatic malalignment.
--- NOTE | 2023-12-04 22:37 | ECG_ITS ---
Test Reason : FALL Blood Pressure : / mmHG Vent. Rate : 095 BPM Atrial Rate : 095 BPM P-R Int : 138 ms QRS Dur : 088 ms QT Int : 406 ms P-R-T Axes : 071 044 053 degrees QTc Int : 510 ms Normal sinus rhythm Prolonged QT Abnormal ECG When compared with ECG of 09-SEP-2023 17:51, QT has lengthened Referred By: Paula Wei Electronically Signed By:DIVYA GRAHAM MD
[2023-12-04 22:44] VITALS: BP 141/90; BP 168/102; PULSE 93; PULSE 94; RESP 28; TEMP 36.6; O2SAT 100; O2SAT 99; BMI 26.3
[2023-12-04 23:04] LABS: MANUAL DIFF FLAG NO
[2023-12-04 23:06] LABS: Basophils Percent Auto 0.2 % (0-2); Hematocrit 41.2 % (42.0-52.0); Hemoglobin 14.5 g/dl (14.0-18.0); Imm Gran Abs Auto 0.03 X10*3/uL (0.00-0.03); Imm Gran Pct Auto 0.3 % (0.0-0.4); Lymphocytes Percent Auto 8.8 % (20-40); Mean Corpuscular HGB Conc 35.2 g/dl (31.0-36.0); Mean Corpuscular Hemoglobin 32.4 pg (27.0-33.0); Mean Platelet Volume 10.6 fL (9.4-12.4); Monocytes Absolute Auto 0.7 X10*3/uL (0.1-1.2); Neutrophils Absolute Auto 9.9 x10*3/uL (2.0-8.3); Neutrophils Percent Auto 84.7 % (45-73); Platelet Count 103 X10*3/uL (160-400); Red Blood Count 4.48 X10*6/uL (4.60-5.80); Red Cell Distribution Width 11.9 % (11.0-16.0); White Blood Count 11.7 X10*3/uL (4.8-10.8)
[2023-12-04 23:14] LABS: INTERNATIONAL NORM RATIO 0.9 (0.9-1.1); Prothrombin Time 10.8 SEC (11.1-13.3)
[2023-12-04 23:21] VITALS: BP 133/91; PULSE 76
[2023-12-04 23:21] LABS: Alanine Aminotransferase 31 U/L (0-40); Albumin Level 4.5 g/dL (3.5-5.0); Alkaline Phosphatase 84 U/L (39-117); Anion Gap 19 (12-20); Aspartate Amino Transferase 104 U/L (5-37); Bilirubin Direct 0.3 mg/dL (0.0-0.5); Bilirubin Total 1.2 mg/dL (0.0-1.0); Blood Urea Nitrogen 14 mg/dL (9-16); Calcium 9.7 mg/dL (8.4-10.2); Carbon Dioxide 22 mmol/L (22-29); Chloride 97 mmol/L (96-108); Creatinine Clr Calc Pharmacy 143.6; Estimated Glomerular Filt Rate > 60; Ethanol < 10 mg/dL; Glucose Random 103 mg/dL (60-115); Magnesium 2.2 mg/dL (1.6-2.6); Potassium 3.9 mmol/L (3.3-5.1); Sodium 134 mmol/L (135-145); Total Protein 8.2 g/dL (6.5-8.0)
[2023-12-04 23:23] VITALS: BP 160/98; PULSE 113
[2023-12-04 23:24] VITALS: BP 145/94; PULSE 122
[2023-12-04 23:25] LABS: Troponin-I High Sensitivity < 2.7 ng/L (<3.5-35.0)
[2023-12-04 23:42] LABS: D Dimer High Sensitivity 274 NG/ML
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
[2023-12-04 23:45] LABS: Appearance Urine Cloudy; Color Urine Dark Yellow; Glucose Urine UA 100 mg/dL (Negative); Leukocyte Esterase Urine Negative (Negative); Nitrite Urine Negative (Negative); PH 5.5 (5.0-9.0); Specific Gravity - Urine >= 1.030 (1.005-1.025); UMIC TRIGGER UACC YES; Urine Blood Large (3+) (Negative); Urine Ketones 80 mg/dL (Negative); Urine Protein 300 (3+) mg/dL (Neg-Trace)
[2023-12-04 23:53] LABS: Amphetamine Screen Urine Not Detected (Not Detect); Barbiturates, Urine Not Detected (Not Detect); Benzodiazepines Screen Urine Not Detected (Not Detect); Cannabinoid Screen Urine Not Detected (Not Detect); Cocaine Screen Urine Not Detected (Not Detect); Fentanyl, urine Not Detected (Not Detect); Opiate Screen Urine Not Detected (Not Detect); Phencyclidine Screen Urine Not Detected (Not Detect)
[2023-12-04 23:56] LABS: Bacteria Urine None Seen (None Seen); Granular Casts Urine Present; Other Crystals Urine Present; RBC Urine 0-2 /HPF (0-2); WBC Urine 0-5 /HPF (0-5)
[2023-12-04 23:57] VITALS: BP 150/90; PULSE 94; RESP 17; TEMP 36.6; O2SAT 100
[2023-12-05] MEDS: 0.9 % Sodium Chloride 1,000 ML 999 ML IVCONT (00:34)
[2023-12-05] MEDS: Morphine Sulfate 2 MG/ML CARTRIDGE 1 MG IVPUSH (00:34)
[2023-12-05] MEDS: LORazepam 2 MG/ML VIAL IVPUSH (00:35)
[2023-12-05 00:39] LABS: COVID-19 Test Negative (Negative); IDNOW Serial# 152EDE1D
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
[2023-12-05 02:44] VITALS: BP 144/81; PULSE 90; RESP 19; TEMP 36.5; O2SAT 98
== END 2023-12-05 02:35 | disposition short-term general hospital (02) ==
PROVIDERS: Emergency Provider Emergency Medicine
DX: S02.113A Unspecified occipital condyle fracture, initial encounter for closed fracture (principal); S06.5XAA Traumatic subdural hemorrhage with loss of consciousness status unknown, initial encounter; R55 Syncope and collapse; R51.9 Headache, unspecified; M54.2 Cervicalgia; F10.239 Alcohol dependence with withdrawal, unspecified; Y90.9 Presence of alcohol in blood, level not specified; W01.10XA Fall on same level from slipping, tripping and stumbling with subsequent striking against unspecified object, initial encounter; Y93.9 Activity, unspecified; Y92.9 Unspecified place or not applicable; Y99.8 Other external cause status; Z11.52 Encounter for screening for COVID-19; Z79.899 Other long term (current) drug therapy
CPT/HCPCS: 36415; 70450; 72125; 80048; 80076; 80307; 81001; 83605; 83735; 84484; 85025; 85379; 85610; 87635; 93005; 96374; 96375; 99285; J2060; J2270

== ENCOUNTER → 2023-12-04 22:37 | Outpatient (BNV) | payer MEDICAID, SELFPAY | PROVIDERS: Emergency Provider Emergency Medicine; Visit Provider Internal Medicine Cardiovascular Disease | DX: R94.31 Abnormal electrocardiogram [ECG] [EKG] (principal) | CPT/HCPCS: 93010 ==

== ENCOUNTER 2023-12-14 00:49 | Emergency (ER) | payer MEDICAID, SELFPAY ==
--- NOTE | ~2023-12-14 | CT_ITS ---
EXAMINATION: CT HEAD WITHOUT CONTRAST CT CERVICAL SPINE WITHOUT CONTRAST CLINICAL INFORMATION: Worsening cough cervical spine pain history of fracture. Question of intracranial bleeding COMPARISON: 12/04/2023 and 11/14/2023 TECHNIQUE: Contiguous axial imaging was performed from the skull base to vertex without intravenous administration of contrast. Contiguous axial imaging was performed from the upper chest through the skull base without intravenous administration of contrast. Coronal and sagittal reformats were obtained at the acquisition workstation. This CT examination was performed using dose optimization techniques as appropriate, variously including the following: *Automated exposure control. *Adjustment of mA and/or kV according to patient size (this includes techniques or standardized protocols for targeted exams where dose is matched to indication/reason for exam; i.e. extremities or head). *Use of iterative reconstruction technique. DLP: 764.32 mGy-cm portal brain and 427.94mGy-cm for cervical spine FINDINGS: Head: Residual subdural hematoma along the posterior aspect of parietal lobe and cerebellar convexities without mass effect or midline shift. The maximum dimension of hematoma measured now 0.8 cm. There is minimal amount of blood seen through the posterior aspect of the falx cerebri. There is no evidence of acute intracranial hemorrhage or edematous territorial infarction. Ricks-white matter differentiation is preserved. There is no abnormal attenuation within the brain parenchyma. The ventricles are normal in morphology and size. No evidence for obstructive hydrocephalus. No abnormal mass effect or midline shift. No extra-axial fluid collections. No acute soft tissue or osseous abnormalities. The mastoid air cells and visualized paranasal sinuses are clear. Cervical Spine: There is no interval change in appearance of small avulsion fracture of the posterior/medial aspect of the left occipital condyle there is straightening of cervical lordosis and possible small amount of epidural hemorrhage seen along the proximal superior cervical canal stable since previous study. There are no new fractures or subluxations identified. Correlate with MRI. Otherwise, there is anatomic alignment of the vertebral bodies and posterior elements. No evidence of acute fracture or subluxation. The vertebral body heights and disc spaces are maintained. There is no prevertebral soft tissue swelling. The thyroid gland and remaining cervical soft tissues are within normal limits. The lung apices demonstrate no abnormalities. CT/CT cervical spine wo IV con IMPRESSION: 1. Residual subdural hematoma along the posterior aspect of the parietal lobe and cerebellar convexities without mass effect or midline shift. 2. Stable appearance of small avulsion fracture of the posterior/medial aspect of the left occipital condyle. 3. Possible small amount of epidural hemorrhage seen along the proximal superior cervical canal stable since previous study. Correlate with MRI.
[2023-12-14 00:54] VITALS: BP 148/76; PULSE 98; O2SAT 97
[2023-12-14 00:58] VITALS: BP 147/112; PULSE 97; RESP 16; TEMP 36.6; O2SAT 97; BMI 26.9
[2023-12-14 04:46] VITALS: BP 141/96; PULSE 79; RESP 16; TEMP 36.7; O2SAT 99
--- NOTE | 2023-12-14 08:25 | ED_ITS ---
HPI - Neck Pain/Injury General Chief Complaint: Neck Pain/Injury Stated Complaint: neck pain Source: patient and RN notes reviewed Mode of arrival: ambulatory Limitations: no limitations History of Present Illness HPI Narrative: This is a 38-year-old male, with a history of recent subdural hematomas and alcohol use disorder, who presents emergency department with complaints of persistent headache and neck pain. He reports that last week, he was seen here in the ER and was diagnosed with a brain bleed and was transferred to [facility], where he was admitted, and was told he had a neck fracture, placed in collar and was d/c with f/u on December 31. He is here today with ongoing headaches and neck pain. No new head trauma. He denies changes in vision, numbness, tingling, fevers, chills, weakness, chest pain, shortness of breath, abdominal pain, nausea, vomiting or diarrhea. He has not drank etoh since last week. No other drug use. Per ER note patient was seen at [facility] with complaints of alco hol withdrawal, severe headache after a fall and a syncopal episode. Prior to this, patient states that he decided to stop drinking all alcohol. He had an alcohol withdrawal seizure as well as subdural hematomass. His CT scan at that time revealed bilateral subdural hematomas, as well as a left occipital condyle fracture. He was transferred to [facility] at that time. No other complaints or concerns at this time. MD complaint: neck pain and neck injury Onset (ago): day(s) Relieving factors: none Exacerbating factors: none Associated symptoms: none Treatments prior to arrival: none Related Data Home Medications ?Medication ?Instructions ?Recorded ?Confirmed sertraline 50 mg tablet 50 mg PO DAILY 11/01/23 11/01/23 Previous Rx's ?Medication ?Instructions ?Recorded tranexamic acid 650 mg tablet 650 mg PO DAILY 21 days #21 tabs 12/14/23 Allergies Allergy/AdvReac Type Severity Reaction Status Date / Time honey Allergy Vomiting Verified 12/14/23 01:03 Review of Systems Review of Systems: Yes all other systems are reviewed and are negative Constitutional: Constitutional: Reports as per [facility] Past Medical History Attestation statement: The following information was validated with the patient. Medical History Alcohol abuse GERD (gastroesophageal reflux disease) Anxiety Social History Social History Alcohol intake: current Alcohol intake frequency: 3 or more drinks per day Alcohol type: hard liquor Patient Tobacco Use Status: Never used Tobacco Advance Directives: No Advance Directives Information Provided: No Physical Exam Vital Signs: Vital Signs: Last Vital Signs Temp 0 F L 12/14/23 13:21 Pulse 0 L 12/14/23 13:21 Resp 0 L 12/14/23 13:21 BP 0/0 L 12/14/23 13:21 Pulse Ox 98 12/14/23 09:38 O2 Del Method Room Air 12/14/23 09:38 BMI result Body Mass Index 26.9 Const: General: cooperative, comfortable and no acute distress Orientation/consciousness: patient oriented x3 Limitations: no limitations HEENT: Head: Yes normal to inspection, Yes normocephalic and Yes atraumatic Ears: hearing grossly normal bilaterally General nose exam: Normal external nose present Face and sinus: Yes normal facial exam Mouth: Normal oral and palatal mucosa present, oropharynx normal and moist mucous membranes Throat: Yes posterior oropharynx normal Eyes: General: appearance normal, both eyes and all related structures Eyelids: Yes eyelids normal Conjunctivae: conjunctivae normal Sclerae: sclerae normal Pupils: Equal, round and reactive pupils present EOM: EOMs intact bilaterally Neck: Other: Cervical collar in place Neck: Yes normal visual inspection Lymphatic: no lymphadenopathy noted Chest: Chest palpation & inspection: normal inspection of the chest Resp: Effort & Inspection: normal respiratory effort and able to speak in complete sentences Auscultation: clear to auscultation bilaterally, no crackles, no rales, no rhonchi and no wheezes Cardio: Rate: regular rate Rhythm: regular rhythm Heart sounds: S1 normal heart sound present and S2 normal heart sound present GI: Inspection: Yes normal to inspection Skin: General skin exam: no rashes or lesions noted Trauma: no lacerations or abrasions Wounds: no wounds Neuro: General: patient oriented x3 and moves all extremities Cranial nerves: Yes CN's II-XII intact bilaterally and Yes Equal, round and reactive pupils present Cognition (Neuro): normal cognition Gait exam (Neuro): Normal gait present Motor exam (neuro): 5/5 motor strength present throughout and Pronator motor function not present Extrem: General: Yes normal to inspection Right upper extremity: normal to inspection Left upper extremity: normal to inspection Right lower extremity: normal to inspection Left lower extremity: normal to inspection Course Reevaluation(s) Reevaluation #1: Received medical records from [facility], on December 04 and was discharged on December 06. During his prognosis, he had a epidural hematoma, fracture of the occipital condyle and subdural hematoma. Neurosurgery was consulted and patient was admitted to neuro enter care for close monitoring. He progressed well in his mental status was improving. There has no new injuries identified on tertiary survey. He was given pain medications, nausea was controlled. OT and PT worked with patient and felt as though outpatient services were safe for this patient. Patient was advised to follow-up in 4 weeks in the neurosurgical office and he will also need PCP for re-evaluation. At this time, we still await for head CT and C-spine CT patient remained stable. He is sleeping, under no acute distress Time: 12:16 Reevaluation #2: CT head revealing residual subdural hematoma along the posterior aspect of the parietal lobe and cerebellar convexities without mass effect or midline shift. There has a stable appearance of small avulsion fracture of the posterior/medial aspect of the left occipital condyle. There has a possible small amount of epidural hemorrhage seen along the proximal superior cervical canal stable since previous study recommending correlation with MRI. I reviewed this image with my attending physician, Dr. Peguero, who recommends reaching out to Neurosurgery at [facility] to compare images. Page sent out to [facility] Neurosurgery. Time: 12:29 Reevaluation #3: Spoke to [facility] Neurosurgery who was able to review the images, stating that it looks better however they are recommending TXA 650 mg daily for the next 21 days and advised to follow-up at follow-up appointment. 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 Given strict return precautions. Patient understands and agrees with plan. He will follow-up with neurosurgery as scheduled on January 01, 2024. Time: 15:34 Medical Decision Making Medical Decision Making MDM Narrative: This is a 38-year-old male, with a history of alcohol use disorder, who presents emergency department with neck pain and headache since yesterday. Patient states that he was recently seen at [facility] after having an alcohol withdrawal seizure and states that he had multiple brain bleeds as well as a cervical spine fracture. He was placed in a cervical collar and was advised to follow up with OT/PT and keep neck in collar for the next 4 weeks. Patient was seen and evaluated by me after being in the emergency room for approximately 6 hours. Vital signs within normal limits. He is neurologically intact. We will attempt to obtain records from [facility] for further assessment. Given ongoing headache and neck pain, will obtain CT head and neck for further evaluation. Plan: CT head, CT neck Differential Diagnosis Differential Diagnoses: The differential diagnosis associated with the presentation includes ICH, cervical spine fracture, migraine headache, tension headache, muscle spasm Admission/Observation Consideration of admission/observation: Escalation of care including admission/observation considered Radiology Impression Discussion of test interpretation with radiology: I have reviewed the radiologist's reading. Radiologist Impression: FINDINGS: Head: Residual subdural hematoma along the posterior aspect of parietal lobe and cerebellar convexities without mass effect or midline shift. The maximum dimension of hematoma measured now 0.8 cm. There is minimal amount of blood seen through the posterior aspect of the falx cerebri. There is no evidence of acute intracranial hemorrhage or edematous territorial infarction. Ricks-white matter differentiation is preserved. There is no abnormal attenuation within the brain parenchyma. The ventricles are normal in morphology and size. No evidence for obstructive hydrocephalus. No abnormal mass effect or midline shift. No extra-axial fluid collections. No acute soft tissue or osseous abnormalities. The mastoid air cells and visualized paranasal sinuses are clear. Cervical Spine: There is no interval change in appearance of small avulsion fracture of the posterior/medial aspect of the left occipital condyle there is straightening of cervical lordosis and possible small amount of epidural hemorrhage seen along the proximal superior cervical canal stable since previous study. There are no new fractures or subluxations identified. Correlate with MRI. Otherwise, there is anatomic alignment of the vertebral bodies and posterior elements. No evidence of acute fracture or subluxation. The vertebral body heights and disc spaces are maintained. There is no prevertebral soft tissue swelling. The thyroid gland and remaining cervical soft tissues are within normal limits. The lung apices demonstrate no abnormalities. CT/CT cervical spine wo IV con IMPRESSION: 1. Residual subdural hematoma along the posterior aspect of the parietal lobe and cerebellar convexities without mass effect or midline shift. 2. Stable appearance of small avulsion fracture of the posterior/medial aspect of the left occipital condyle. 3. Possible small amount of epidural hemorrhage seen along the proximal superior cervical canal stable since previous study. Correlate with MRI. Dictated By: Mary aMcias MD Discharge Plan Discharge Clinical Impression: Subdural hematoma Patient Disposition: Left W/O Completing Treatment Prescriptions: New tranexamic acid 650 mg tablet 650 mg PO DAILY 21 Days Qty: 21 0RF No Action sertraline 50 mg tablet 50 mg PO DAILY Interventions: LWBS Worksheet Last Done: 12/14/23 07:17 ED Discharge Assessment Last Done: 12/14/23 13:21 Discharge Date/Time: 12/14/23 13:24
--- NOTE | 2023-12-14 09:35 | PC.NURSE ---
this nurse took over care of patient at 9am, pt recently evicted from home and is homeless, was brought in by ems from [facility] in [place], neck collar intact, +csm to extremities, pt to CT scan as ordered, vitals to be updated by tech.
[2023-12-14 09:38] VITALS: BP 129/77; PULSE 67; RESP 20; TEMP 36.6; O2SAT 98
--- NOTE | 2023-12-14 12:43 | PC.NURSE ---
pt stated he was wanting to know whats going on as he had fallen asleep, this nurse spoke with provider who stated just waiting for ct scans to result. this nurse went to tell the patient and he was not found in his room.
[2023-12-14 13:21] VITALS: BP 0/0; PULSE 0; RESP 0; TEMP -17.7; TEMP 0
== END 2023-12-14 13:24 | disposition left against medical advice (07) ==
PROVIDERS: Emergency Provider Emergency Medicine; PCP Physician Assistant
DX: I62.00 Nontraumatic subdural hemorrhage, unspecified (principal); R51.9 Headache, unspecified; M54.2 Cervicalgia
CPT/HCPCS: 70450; 72125; 99283; 99284

== ENCOUNTER 2025-05-18 02:33 | Inpatient (IN) | payer SELFPAY ==
[2025-05-18] VITALS (9 sets, daily range): BP systolic 135–153; BP diastolic 79–95; PULSE 86–106; RESP 16–18; TEMP 36.2–36.8; O2SAT 96–99; BMI 30.7; BMI 30.4
--- NOTE | ~2025-05-18 | CT_ITS ---
CLINICAL HISTORY: fall ?head strike CT head without contrast Comparison: 12/14/2023 Findings: No intra-axial mass, midline shift, hydrocephalus, or acute hemorrhage. No significant atrophy-like change or white matter disease. The visualized paranasal sinuses and mastoid air cells are normal. The orbits are within normal limits. No skull fracture. IMPRESSION: 1. No acute intracranial findings. This document has been electronically signed by: Christian Gastelum MD on 05/18/2025 09:42:10
--- NOTE | ~2025-05-18 | CT_ITS ---
CLINICAL HISTORY: fall ?head strike CT cervical spine without contrast Comparison: CT/SD/SR - CT CERVICAL SPINE WITHOUT IV CONTRAST - 12/14/2023 09:17 AM EDT Findings: Normal vertebral body alignment. No significant degenerative change. No acute fractures or dislocations. No acute findings on limited view of the intracranial contents. No cervical fluid collections or masses. Lung apices are clear. IMPRESSION: No acute findings. This document has been electronically signed by: Christian Gastelum MD on 05/18/2025 09:47:22
--- NOTE | 2025-05-18 04:06 | ED_ITS ---
HPI - Alcohol General Chief Complaint: ETOH/Substance Use Stated Complaint: ETOH Time Seen by Provider: 05/18/25 03:59 Source: patient and EMS Mode of arrival: EMS Limitations: no limitations History of Present Illness ED Provider: DR. White HPI narrative: 40-year-old male with significant history of alcohol abuse came in seeking detox and concern of withdrawal seizure patient has been binging alcohol for the past 5 days drinking hard liquor last drink was 7 hours ago patient is started to feel anxious, started to have some tremors, patient had a history of strong withdrawal symptoms in the past and he is concerned about getting seizure from withdrawing. No CP, no SOB, no abdominal pain, no fever, no chills. Related Data Home Medications ?Medication ?Instructions ?Recorded ?Confirmed sertraline 50 mg tablet 50 mg PO DAILY 11/01/2310/06 Previous Rx's ?Medication ?Instructions ?Recorded tranexamic acid 650 mg tablet 650 mg PO DAILY 21 days #21 tabs 12/14/23 Allergies Allergy/AdvReac Type Severity Reaction Status Date / Time honey Allergy Vomiting Verified 05/18/25 02:40 Review of Systems 2 Review of Systems: All other systems are reviewed and are negative Constitutional: Reports as per HPI and Reports no additional constitutional complaints Eyes: Reports as per HPI and Reports no additional eye complaints Reports system reviewed and no additional complaints, except as documented Cardiovascular: Reports as per HPI and Reports no additional cardiovascular complaints Respiratory: Reports as per HPI and Reports no additional respiratory complaints Gastrointestinal: Reports as per HPI and Reports no additional gastrointestinal complaints Genitourinary: Reports no additional female genitourinary complaints Musculoskeletal: Reports no additional musculoskeletal complaints Skin/Breast: Reports system reviewed and no additional complaints, except as docu Psychiatric: Reports no additional psychiatric complaints Endocrine: Reports no additional endocrine complaints Hematologic/Lymphatic: Reports no additional hematologic/lymphatic complaints Allergic/Immunologic: Reports no additional allergic/immunologic complaints Reports system reviewed and no additional complaints. [facility] Past Medical History Medical History Alcohol abuse GERD (gastroesophageal reflux disease) Anxiety Social History Social History Unable to assess alcohol history related to: Unknown Alcohol intake: current Alcohol intake frequency: 3 or more drinks per day Alcohol type: hard liquor Patient Tobacco Use Status: Never used Tobacco Use of substances other than those prescribed or required for medical reasons: No Advance Directives: No Physical Exam ED Vital Signs: Vital Signs - 24 hr 05/18/25 02:39 05/18/25 02:43 Temperature 97.9 F Pulse Rate 90 Respiratory Rate 16 Blood Pressure 135/94 H Pulse Oximetry 99 Oxygen Delivery Method Room Air Room Air BMI result Body Mass Index 30.7 Vital signs have been reviewed and appear to be correct. Blood pressure elevated. Heart rate normal. Respiratory rate normal. Temperature normal. Oxygen saturation normal. Appearance: Alert. Oriented X3. No acute distress. Head: Normal external exam. Normocephalic. Atraumatic. No Jorge signs noted. No raccoon eyes noted Eyes: PERRLA. EOMI. Conjunctiva and sclera normal. Eyelids normal. ENT: TM's Normal. Pharynx normal. Uvula midline. Moist mucous membranes. No trismus noted. No drooling noted. No muffled voice noted. Neck: Normal inspection. Neck supple. FROM. No adenopathy. Thyroid Normal. No meningeal signs. No neck mass noted. CVS: Normal heart rate and rhythm. Heart sound normal. No murmurs noted. Pulses normal throughout. Respiratory: No respiratory distress. Painless inspiration. Breath sounds normal. No wheezes/rales/rhonchi noted. Chest nontender. No accessory muscle usage noted or decreased air movement noted. Abdomen: Soft and nontender. Bowel sounds normal in all 4 quadrants. No distention noted. No organomegaly noted. No visible injury noted. Back: No CVA tenderness. Full range of motion noted. Skin: Skin warm and dry. Normal skin color. Normal skin turgor. No rashes/lesions/lacerations noted. Extremities: No lower extremity edema. Extremities exhibit normal range of motion. Extremities nontender. Neuro: Oriented X 3. Cranial nerve exam: II-XII are grossly intact No motor deficit. No sensory deficit. Reflexes normal. Course Reevaluation(s) Reevaluation #1: significant hard liquor drinking last 5 days concern of withdrawal, CIWA score today is 14 will start the patient on phenobarb and admit. Time: 05:00 Medical Decision Making Differential Diagnosis Differential Diagnoses: The differential diagnosis associated with the presentation includes ( alcohol withdrawal, electrolyte derangement, dehydration, severe anemia.) Admission/Observation Consideration of admission/observation: Escalation of care including admission/observation considered Lab Data MDM Lab Attestation statement: I reviewed the patient's lab results. 05/18/25 04:56 05/18/25 04:56 Labs: Lab Results 05/18/25 Range/Units 04:56 WBC 8.9 (4.8-10.8) X10*3/uL RBC 4.79 (4.60-5.80) X10*6/uL Hgb 15.5 (14.0-18.0) g/dl Hct 43.1 (42.0-52.0) % MCV 90.0 (80.0-98.0) fL MCH 32.4 (27.0-33.0) pg MCHC 36.0 (31.0-36.0) g/dl RDW 12.0 (11.0-16.0) % Plt Count 227 D (160-400) X10*3/uL MPV 9.1 L (9.4-12.4) fL Immature Gran % (Auto) 0.2 (0.0-0.4) % Neut % (Auto) 70.7 (45-73) % Lymph % (Auto) 23.6 (20-40) % [place] % (Auto) 5.0 (2-11) % Eos % (Auto) 0.2 (0-4) % Baso % (Auto) 0.3 (0-2) % Lymph # (Auto) 2.1 (1.2-4.9) X10*3/uL [place] # (Auto) 0.4 (0.1-1.2) X10*3/uL Eos # (Auto) 0.0 (0.0-0.4) X10*3/uL Baso # (Auto) 0.0 (0.0-0.2) X10*3/uL Abs Immat Gran (auto) 0.02 (0.00-0.03) X10*3/uL Absolute Neuts (auto) 6.3 (2.0-8.3) x10*3/uL Absolute Nucleated RBC 0.000 (0.0-0.012) X10*3/uL Nucleated RBC % (auto) 0.0 (0.0-0.2) /100WBC Sodium 139 (135-145) mmol/L Potassium 4.0 (3.3-5.1) mmol/L Chloride 99 (96-108) mmol/L Carbon Dioxide 26 (22-29) mmol/L Anion Gap 18 (12-20) BUN 10 (9-16) mg/dL Creatinine 0.87 (0.5-1.4) mg/dL Estim Creat Clear Calc 127.8 Estimated GFR > 60 Random Glucose 88 (60-115) mg/dL Calcium 8.9 D (8.4-10.2) mg/dL Magnesium 2.1 (1.6-2.6) mg/dL Total Bilirubin 0.6 (0.0-1.0) mg/dL Direct Bilirubin 0.1 (0.0-0.5) mg/dL AST 52 H (5-37) U/L ALT 44 H (0-40) U/L Alkaline Phosphatase 91 (39-117) U/L Total Protein 7.9 (6.5-8.0) g/dL Albumin 4.7 (3.5-5.0) g/dL Lipase 24 (8-78) U/L Ethyl Alcohol 188 mg/dL Discharge Plan Discharge Clinical Impression: Alcohol withdrawal syndrome Patient Disposition: Admitted As Inpatient Print Language: Vietnamese
[2025-05-18 05:18] LABS: Hematocrit 43.1 % (42.0-52.0); Hemoglobin 15.5 g/dl (14.0-18.0); Imm Gran Abs Auto 0.02 X10*3/uL (0.00-0.03); Imm Gran Pct Auto 0.2 % (0.0-0.4); Lymphocytes Absolute Auto 2.1 X10*3/uL (1.2-4.9); MANUAL DIFF FLAG NO; Mean Corpuscular HGB Conc 36.0 g/dl (31.0-36.0); Mean Corpuscular Hemoglobin 32.4 pg (27.0-33.0); Mean Corpuscular Volume 90.0 fL (80.0-98.0); NRBC Abs Auto 0.000 X10*3/uL (0.0-0.012); NRBC Pct Auto 0.0 /100WBC (0.0-0.2); Platelet Count 227 X10*3/uL (160-400); Red Blood Count 4.79 X10*6/uL (4.60-5.80); White Blood Count 8.9 X10*3/uL (4.8-10.8)
[2025-05-18 05:37] LABS: Alanine Aminotransferase 44 U/L (0-40); Albumin Level 4.7 g/dL (3.5-5.0); Alkaline Phosphatase 91 U/L (39-117); Anion Gap 18 (12-20); Aspartate Amino Transferase 52 U/L (5-37); Blood Urea Nitrogen 10 mg/dL (9-16); Calcium 8.9 mg/dL (8.4-10.2); Carbon Dioxide 26 mmol/L (22-29); Chloride 99 mmol/L (96-108); Creatinine Clr Calc Pharmacy 127.8; Estimated Glomerular Filt Rate > 60; Lipase 24 U/L (8-78); Magnesium 2.1 mg/dL (1.6-2.6); Potassium 4.0 mmol/L (3.3-5.1); Sodium 139 mmol/L (135-145); Total Protein 7.9 g/dL (6.5-8.0)
[2025-05-18 06:11] LABS: Appearance Urine Clear; Glucose Urine UA Negative (Negative); PH 6.5 (5.0-9.0); Specific Gravity - Urine 1.020 (1.005-1.025); UMIC TRIGGER UACC YES
[2025-05-18 06:22] LABS: Cannabinoid Screen Urine POSITIVE (Not Detect)
--- NOTE | 2025-05-18 07:02 | P.HPHOSP_ITS ---
History of Present Illness Date of Service: 05/18/25 Attending physician on admission: Agusto Fuentes Chief Complaint: etoh withdrawal Patient is a 40-year-old male with a past medical history significant for alcohol use disorder, GERD, anxiety, and class 1 obesity, who presented to the ED via EMS for an unknown reason, possible fall and concern for alcohol withdrawal. The patient reports nausea and anxiety. He reports consuming about 20 nips per day for the past 5 days. He denies any nausea or vomiting currently but is moderately anxious. CIWA scores have been elevated up to 14 and the patient was started on phenobarb protocol. Review of Systems 2 Constitutional: Constitutional: Denies body ache(s), Denies chills, Denies fatigue, Denies fever(s) and Denies headache(s) Eyes: Eyes: Denies change in vision ENT: Denies headache(s), Denies nasal congestion and Denies sore throat Cardiovascular: Cardiovascular: Denies chest pain, Denies rapid heart rate, Denies leg edema, Denies lightheadedness and Denies dyspnea Respiratory: Respiratory: Denies chest congestion, Denies cough, Denies dyspnea and Denies wheezing Gastrointestinal: Gastrointestinal: Denies abdominal pain, Denies diarrhea, Reports nausea and Denies vomiting Genitourinary: Genitourinary: Denies dysuria and Denies urinary urgency Musculoskeletal: Musculoskeletal: Denies back pain and Denies myalgias Integumentary/Breasts: Skin/Breast: Denies rash Neurologic: Denies confusion and Denies headache(s) Psychiatric: Psychiatric: Denies confusion Endocrine: Endocrine: Denies fatigue Hematologic/Lymphatic: Hematologic/Lymphatic: Denies easy bleeding and Denies easy bruising Allergic/Immunologic: Allergic/Immunologic: Denies wheezing [facility] Medical History (Updated 05/18/25 @ 07:24 by Verito Bhagat PA-C) Tobacco use disorder Alcohol abuse GERD (gastroesophageal reflux disease) Anxiety Functional capacity: independent ambulation Social History Unable to assess alcohol history related to: Unknown Alcohol intake: current Alcohol intake frequency: 3 or more drinks per day Alcohol type: hard liquor Patient Tobacco Use Status: Never used Tobacco Use of substances other than those prescribed or required for medical reasons: No Advance Directives: No Meds Allergies Allergy/AdvReac Type Severity Reaction Status Date / Time honey Allergy Vomiting Verified 05/18/25 02:40 Active Medications: Current Medications Pharmacy Consult (Consult Rx Etoh Phenob Im/Po) 1 each MISCELLANE ONCE PRN; Protocol PRN Reason: Consult order Phenobarbital (Phenobarbital 15 Mg Tablet) 45 mg PO BID GABRIELA; Protocol Stop: 05/20/25 09:01 Phenobarbital (Phenobarbital 15 Mg Tablet) 15 mg PO BID GABRIELA; Protocol Stop: 05/22/25 09:01 Phenobarbital (Phenobarbital 15 Mg Tablet) 15 mg PO DAILY GABRIELA; Protocol Stop: 05/24/25 09:01 Phenobarbital Sodium (Phenobarbital Sodium 130 Mg/Ml Vial Im Q3hx2) 212 mg IM Q3H GABRIELA; Protocol Stop: 05/18/25 12:01 Home Medications ?Medication ?Instructions ?Recorded ?Confirmed ?Last Taken ?Type sertraline 50 mg tablet 50 mg PO DAILY 11/01/2310/0610/18/23 History Physical Exam 2 Vital Signs and Narrative: Vital Signs: Last Vital Signs Temp 98.3 F 05/18/25 06:01 Pulse 88 05/18/25 06:01 Resp 17 05/18/25 06:01 BP 136/90 H 05/18/25 06:01 Pulse Ox 96 05/18/25 06:01 O2 Del Method Room Air 05/18/25 06:01 BMI result Body Mass Index 30.7 General: AOx3, no acute distress Resp: CTA bilaterally CVS: S1, S2, RRR GI: +BS, NT, no distention Skin: Warm, dry Neuro: Cranial nerves II-XII grossly intact bilaterally. Motor grossly intact bilaterally Extremities: No edema Psych: Appropriate affect Const: General: No confusion Orientation/consciousness: No confusion Neuro: General: No confusion Results Labs 05/18/25 04:56 05/18/25 04:56 Labs: Laboratory Results - last 24 hr 05/18/25 05/18/25 04:56 06:04 MCV 90.0 MCH 32.4 MCHC 36.0 RDW 12.0 Plt Count 227 D MPV 9.1 L Immature Gran % (Auto) 0.2 Neut % (Auto) 70.7 Lymph % (Auto) 23.6 [place] % (Auto) 5.0 Eos % (Auto) 0.2 Baso % (Auto) 0.3 Lymph # (Auto) 2.1 [place] # (Auto) 0.4 Eos # (Auto) 0.0 Baso # (Auto) 0.0 Abs Immat Gran (auto) 0.02 Absolute Neuts (auto) 6.3 Absolute Nucleated RBC 0.000 Nucleated RBC % (auto) 0.0 Anion Gap 18 Estim Creat Clear Calc 127.8 Estimated GFR > 60 Random Glucose 88 Calcium 8.9 D Magnesium 2.1 Total Bilirubin 0.6 Direct Bilirubin 0.1 AST 52 H ALT 44 H Alkaline Phosphatase 91 Total Protein 7.9 Albumin 4.7 Lipase 24 Urine Color Yellow Urine Appearance Clear Urine pH 6.5 Ur Specific [place] 1.020 Urine Protein 30 (1+) H Urine Glucose (UA) Negative Urine Ketones 15 Urine Blood Trace H Urine Nitrite Negative Ur Leukocyte Esterase Negative Urine RBC 0-2 Urine WBC 0-5 Ur Squamous Epith Cells 3-5 Urine Bacteria Trace Hyaline Casts 0-2 Urine Opiates Screen Not Detected Ur Buprenorphine Scrn Not Detected Ur Oxycodone Screen Not Detected Urine Methadone Screen Not Detected Urine Fentanyl Screen Not Detected Ur Barbiturates Screen Not Detected Ur Phencyclidine Scrn Not Detected Ur Amphetamines Screen Not Detected U Benzodiazepines Scrn Not Detected Urine Cocaine Screen Not Detected U Marijuana (THC) Screen POSITIVE H Ethyl Alcohol 188 Assessment and Plan (1) Alcohol withdrawal syndrome: Status: Acute (2) Class 1 obesity: Status: Acute (3) Tobacco use disorder: Status: Acute Plan Patient is a 40-year-old male with a past medical history significant for alcohol use disorder, GERD, anxiety, and class 1 obesity, who presented to the ED via EMS for an unknown reason, possible fall and concern for alcohol withdrawal. etoh withdrawal - etoh level 188 - CIWA up to 14 - started on phenobarb protocol (phamracy is switching to IV as pt is afraid of IM injections) - head CT/c-spine ordered due to concern for fall - seizure precautions - monitor CIWA q.4h - addiction med consult - monitor on telemetry - B12, folic acid, multivitamin - LR 100 mL/HR GERD - continue home meds anxiety - continue home meds tobacco use disorder - smoking cessation encouraged - declines nicotine patch Class 1 obesity - BMI 30.7 - weight loss encouraged Med rec pending Full code VTE prophylaxis: Pneumoboots pending head CT Quality Stroke Does the patient have a stroke diagnosis?: No VTE Prior VTE?: No VTE Risk Level:: Medical - moderate - high VTE Device Contraindication: Treatment Not Indicated VTE Drug Contraindication: N/A - Med Ordered
[2025-05-18] MEDS: SODIUM CHLORIDE 0.9% IV (08:58)
[2025-05-18] MEDS: PHENOBARBITAL SODIUM IV (08:58)
[2025-05-18] MEDS: Lactated Ringers 1,000 ML 100 ML IVCONT (09:35)
--- NOTE | 2025-05-18 09:41 | PHA.MEDREC ---
Addendum entered by Yusef Vasquez, PharmD 05/18/25 11:08: [facility] REC CHECKED BY [facility] Original Note: Pharmacy Consult ? Medication Reconciliation Pharmacy has completed the medication reconciliation. Confirmed medication list with patient. Patient no longer taking Sertraline due to panic attacks occurring less frequently w/ less severity, medication cost too much.
[2025-05-19 03:24] VITALS: BP 139/90; PULSE 58; RESP 18; TEMP 36.5; O2SAT 96
[2025-05-19 07:38] VITALS: BP 134/92; PULSE 70; RESP 18; TEMP 36.2; O2SAT 100
--- NOTE | 2025-05-19 09:52 | HO.PM.IMPN ---
Subjective Subjective Date of Service: 05/19/25 Interval History: still jittery Physical Exam Exam: Exam: General: AO X 3, anxiuos appearing Resp: CTA bilateral, no accessory muscles used CVS: S1,S2,RRR GI: soft, non tender, non distended Neuro: motor grossly intact, alert, tremor Psych: appropriate affect, appropriate insight Vital Signs: Vital Signs: Last Vital Signs Temp 97.2 F 05/19/25 07:38 Pulse 70 05/19/25 07:38 Resp 18 05/19/25 07:38 BP 134/92 H 05/19/25 07:38 Pulse Ox 100 05/19/25 07:38 O2 Del Method Room Air 05/19/25 07:38 BMI result Body Mass Index 30.4 Objective Data Active Medications Acetaminophen (Acetaminophen 325 Mg Tablet) 650 mg PO Q6H PRN PRN Reason: Pain, Mild 1-3,fever,headache Last Admin: 05/18/25 19:00 Dose: 650 mg Documented By: BROAlejandro Calcium Carbonate (Calcium Carbonate 750 Mg Tab.Chew) 750 mg PO Q4H PRN PRN Reason: Heartburn Enoxaparin Sodium (Enoxaparin Sodium 40 Mg/0.4 Ml Syringe) 40 mg SUBCUT Q24H GABRIELA On Hold: 05/18/25 07:08 Last Admin: 05/18/25 07:24 Dose: Not Given Documented By: ZEENAT Non-Admin Reason: medication on hold Folic Acid (Folic Acid 1 Mg Tablet) 1 mg PO DAILY GABRIELA Stop: 05/21/25 08:59 Last Admin: 05/18/25 09:17 Dose: 1 mg Documented By: ZEENAT Lactated Ringer's (Lr) 1,000 mls @ 100 mls/hr IVCONT .Q10H GABRIELA Last Admin: 05/19/25 02:22 Dose: Not Given Documented By: TOMASA Non-Admin Reason: Patient Refused Magnesium Hydroxide (Milk Of Magnesia 30 Ml Oral.Susp) 30 ml PO DAILY PRN PRN Reason: Constipation Melatonin (Melatonin 3 Mg Tablet) 6 mg PO BEDTIME PRN PRN Reason: Insomnia Multivitamins/Vitamin C (Multivitamin Tablet) 1 tab PO DAILY GABRIELA Stop: 05/21/25 08:59 Last Admin: 05/18/25 09:17 Dose: 1 tab Documented By: ZEENAT Oxycodone HCl (Oxycodone Hcl Immed Release 5 Mg Tablet) 5 mg PO Q6H PRN PRN Reason: Pain, Severe (Pain Scale 7-10) Pharmacy Consult (Consult Rx Etoh Phenob Im/Po) 1 each MISCELLANE ONCE PRN; Protocol PRN Reason: Consult order Phenobarbital (Phenobarbital 15 Mg Tablet) 45 mg PO BID [facility]; Protocol Stop: 05/20/25 09:01 Last Admin: 05/18/25 20:03 Dose: 45 mg Documented By: TOMASA Phenobarbital (Phenobarbital 15 Mg Tablet) 15 mg PO BID [facility]; Protocol Stop: 05/22/25 09:01 Phenobarbital (Phenobarbital 15 Mg Tablet) 15 mg PO DAILY [facility]; Protocol Stop: 05/24/25 09:01 Sodium Chloride (0.9 % Sodium Chloride Flush 3 Ml Syringe) [facility] Last Admin: 05/18/25 23:04 Dose: Not Given Documented By: TOMASA Non-Admin Reason: Patient Refused Thiamine HCl (Thiamine Hcl 100 Mg Tablet) 100 mg PO DAILY [facility] Stop: 05/21/25 08:59 Last Admin: 05/18/25 09:17 Dose: 100 mg Documented By: ZEENAT Labs 05/18/25 04:56 05/18/25 04:56 Assessment and Plan (1) Alcohol withdrawal syndrome: Status: Acute Plan 40M PMH alcohol dependence, mood disorder, obesity presented with fall found to be in alcohol withdrawal Alcohol dependence with acute withdrawal Continue phenobarb, CIWA, vitamin supplement, addiction eval Obesity Weight loss recommended DVT prophylaxis with Lovenox Full Code reason for continued hospitalization: Actively withdrawing Quality Stroke Does the patient have a stroke diagnosis?: No VTE Prior VTE?: No VTE Risk Level:: Medical - moderate - high VTE Device Contraindication: Treatment Not Indicated VTE Drug Contraindication: N/A - Med Ordered
[2025-05-19 11:21] VITALS: BP 144/100; PULSE 88; RESP 17; TEMP 36.1; O2SAT 98
--- NOTE | 2025-05-19 11:26 | MHC.CM.PN ---
IMM 05/19/25, Pt. lives alone, does not have a PCP, he just got ins. thru his employer, brochure given. HCP discussed, he declined to complete form. He does not use home health services, plans to take an Uber home at [place], DCP: home, self care. CM to follow for DC needs.
--- NOTE | 2025-05-19 14:20 | HO.ADDICT_ITS ---
History of Present Illness Date of Service: 05/19/25 Chief Complaint: ETOH Reason for Consult: AUD Sources of Information: patient interviewed and chart reviewed HPI Narrative: Patient is a 40 year old male with history of AUD. Presented to [facility] ED with acute alcohol withdrawal. Admitted and initiated on phenobarbital taper. Seen in room 484. He is awake, alert, pleasant and engaged in interview. He reports overall withdrawal sx are much improved, including tremor which is felt but not visible. Patient was seen by fruit washer earlier in admission and declined G[facility]ENIA, but was open to referral to [facility] He states he has strong supports in place, and plans to engage with them more. Full substance use and treatment history obtained by fruit washer and reviewed with patient. Labs reviewed Appeared comfortable, eating breakfast, denies any GI sx, no diaphoreis noted. Medical Evaluation Reviewed: Yes Review of Systems Constitutional: Reports as per HPI and Reports no additional constitutional complaints Diagnostics Vital Signs (24Hr): Vital Signs - 24 hr 05/18/25 15:40 05/18/25 19:08 05/18/25 23:06 Temperature 98.3 F 97.1 F 97.6 F Pulse Rate 93 86 89 Respiratory Rate 16 18 18 Blood Pressure 146/95 H 140/92 H 153/88 H Pulse Oximetry 96 97 99 Oxygen Delivery Method Room Air Room Air Room Air 05/19/25 03:24 05/19/25 07:38 05/19/25 11:21 Temperature 97.7 F 97.2 F 97.0 F Pulse Rate 58 70 88 Respiratory Rate 18 18 17 Blood Pressure 139/90 H 134/92 H 144/100 H Pulse Oximetry 96 100 98 Oxygen Delivery Method Room Air Room Air Room Air BMI result Body Mass Index 30.4 Labs 05/18/25 04:56 05/18/25 04:56 Labs: Laboratory Results - last 48 hr 05/18/25 05/18/25 04:56 06:04 WBC 8.9 RBC 4.79 Hgb 15.5 Hct 43.1 MCV 90.0 MCH 32.4 MCHC 36.0 RDW 12.0 Plt Count 227 D MPV 9.1 L Immature Gran % (Auto) 0.2 Neut % (Auto) 70.7 Lymph % (Auto) 23.6 [place] % (Auto) 5.0 Eos % (Auto) 0.2 Baso % (Auto) 0.3 Lymph # (Auto) 2.1 [place] # (Auto) 0.4 Eos # (Auto) 0.0 Baso # (Auto) 0.0 Abs Immat Gran (auto) 0.02 Absolute Neuts (auto) 6.3 Absolute Nucleated RBC 0.000 Nucleated RBC % (auto) 0.0 Sodium 139 Potassium 4.0 Chloride 99 Carbon Dioxide 26 Anion Gap 18 BUN 10 Creatinine 0.87 Estim Creat Clear Calc 127.8 Estimated GFR > 60 Random Glucose 88 Calcium 8.9 D Magnesium 2.1 Total Bilirubin 0.6 Direct Bilirubin 0.1 AST 52 H ALT 44 H Alkaline Phosphatase 91 Total Protein 7.9 Albumin 4.7 Lipase 24 Urine Color Yellow Urine Appearance Clear Urine pH 6.5 Ur Specific [place] 1.020 Urine Protein 30 (1+) H Urine Glucose (UA) Negative Urine Ketones 15 Urine Blood Trace H Urine Nitrite Negative Ur Leukocyte Esterase Negative Urine RBC 0-2 Urine WBC 0-5 Ur Squamous Epith Cells 3-5 Urine Bacteria Trace Hyaline Casts 0-2 Urine Opiates Screen Not Detected Ur Buprenorphine Scrn Not Detected Ur Oxycodone Screen Not Detected Urine Methadone Screen Not Detected Urine Fentanyl Screen Not Detected Ur Barbiturates Screen Not Detected Ur Phencyclidine Scrn Not Detected Ur Amphetamines Screen Not Detected U Benzodiazepines Scrn Not Detected Urine Cocaine Screen Not Detected U Marijuana (THC) Screen POSITIVE H Ethyl Alcohol 188 Mental Status Exam Mental Status Exam Patient Appearance: Appropriate Level of Consciousness: Awake, Appropriate and Alert Patient Behavior: Appropriate, Talkative and Cooperative Affect Description: Calm Speech Pattern: Clear Hallucinations: None Delusions: Not Present Thought Process: Intact Thought Content: positive for Intact Judgement: Good Medications Medications Current Medications Acetaminophen (Acetaminophen 325 Mg Tablet) 650 mg PO Q6H PRN PRN Reason: Pain, Mild 1-3,fever,headache Last Admin: 05/19/25 10:43 Dose: 650 mg Calcium Carbonate (Calcium Carbonate 750 Mg Tab.Chew) 750 mg PO Q4H PRN PRN Reason: Heartburn Enoxaparin Sodium (Enoxaparin Sodium 40 Mg/0.4 Ml Syringe) 40 mg SUBCUT Q24H GABRIELA On Hold: 05/18/25 07:08 Last Admin: 05/18/25 07:24 Dose: Not Given Folic Acid (Folic Acid 1 Mg Tablet) 1 mg PO DAILY GAB[facility]ELA Stop: 05/21/25 08:59 Last Admin: 05/19/25 09:48 Dose: 1 mg Hydroxyzine HCl (Hydroxyzine Hcl 25 Mg Tablet) 25 mg PO Q8H PRN PRN Reason: Anxiety Magnesium Hydroxide (Milk Of Magnesia 30 Ml Oral.Susp) 30 ml PO DAILY PRN PRN Reason: Constipation Melatonin (Melatonin 3 Mg Tablet) 6 mg PO BEDTIME PRN PRN Reason: Insomnia Multivitamins/Vitamin C (Multivitamin Tablet) 1 tab PO DAILY [facility] Stop: 05/21/25 08:59 Last Admin: 05/19/25 09:48 Dose: 1 tab Oxycodone HCl (Oxycodone Hcl Immed Release 5 Mg Tablet) 5 mg PO Q6H PRN PRN Reason: Pain, Severe (Pain Scale 7-10) Pharmacy Consult (Consult Rx Etoh Phenob Im/Po) 1 each MISCELLANE ONCE PRN; Protocol PRN Reason: Consult order Phenobarbital (Phenobarbital 15 Mg Tablet) 45 mg PO BID [facility]; Protocol Stop: 05/20/25 09:01 Last Admin: 05/19/25 09:49 Dose: 45 mg Phenobarbital (Phenobarbital 15 Mg Tablet) 15 mg PO BID [facility]; Protocol Stop: 05/22/25 09:01 Phenobarbital (Phenobarbital 15 Mg Tablet) 15 mg PO DAILY [facility]; Protocol Stop: 05/24/25 09:01 Sodium Chloride (0.9 % Sodium Chloride Flush 3 Ml Syringe) [facility] Last Admin: 05/19/25 09:48 Dose: Not Given Thiamine HCl (Thiamine Hcl 100 Mg Tablet) 100 mg PO DAILY [facility] Stop: 05/21/25 08:59 Last Admin: 05/19/25 09:48 Dose: 100 mg Allergies Allergies Allergy/AdvReac Type Severity Reaction Status Date / Time honey Allergy Vomiting Verified 05/18/25 02:40 Assessment & Plan Assessment & Plan (1) Alcohol use disorder, severe, dependence: Status: Acute Code(s): F10.20 - Alcohol dependence, uncomplicated Assessment and Plan: * withdrawal sx resolving with pheno taper * patient declined GARDENIA * risk reduction and relapse prevention strategies reviewed Total time managing care of this patient today _25___ minutes. [facility] Past Medical History Medical History (Updated 05/20/25 @ 15:39 by Elina Marshall CNP) Tobacco use disorder Alcohol abuse GERD (gastroesophageal reflux disease) Anxiety Social History Social History Household Members: None Housing: House Do you presently have visiting nurse or other home services: No Unable to assess alcohol history related to: Unknown Alcohol intake: current Alcohol intake frequency: 3 or more drinks per day Alcohol type: hard liquor Patient Tobacco Use Status: Current everyday Tobacco user Tobacco use type: Cigarette Second Hand Smoke Exposure: No service: No
--- NOTE | 2025-05-19 14:47 | P.DS_ITS ---
DS: Providers Provider Date of Service: 05/19/25 Date of admission: 05/18/25 06:47 Date of discharge: 05/19/25 Primary care physician: None Physician Consults: 05/18/25 06:59 Addiction Medicine Provider Routine Consulting Provider: Addiction Covering Reason for consultation: etoh Has provider been notified: No DS: Diagnosis Discharge Diagnosis (1) Alcohol withdrawal syndrome: Status: Acute DS: Summary Hospital Course Hospital Course: from initial hpi: 40-year-old male with a past medical history significant for alcohol use disorder, GERD, anxiety, and class 1 obesity, who presented to the ED via EMS for an unknown reason, possible fall and concern for alcohol withdrawal. The patient reports nausea and anxiety. He reports consuming about 20 nips per day for the past 5 days. He denies any nausea or vomiting currently but is moderately anxious. CIWA scores have been elevated up to 14 and the patient was started on phenobarb protocol. hospital course: Patient was admitted for alcohol dependence with acute withdrawal. Was treated with phenobarbital protocol and vitamin supplementation, ideally patient would have stayed longer to continue phenobarbital protocol as he is still actively withdrawing however wishes to leave against medical advice. He is able to demonstrate understanding of the risks of doing so including withdrawal seizures and . For obesity weight loss recommended. Time Attestation Discharge Coordination Time (in mins): 33 Quality: Safe Use of Opioids Does Pt have an Active Cancer Diagnosis on the Problem List?: No Quality: Stroke Does the patient have a stroke diagnosis?: No Physical Exam Exam: Exam: General: AO X 3, anxiuos appearing Resp: CTA bilateral, no accessory muscles used CVS: S1,S2,RRR GI: soft, non tender, non distended Neuro: motor grossly intact, alert, tremor Psych: appropriate affect, appropriate insight Vital Signs: Vital Signs: Last Vital Signs Temp 97.0 F 05/19/25 11:21 Pulse 88 05/19/25 11:21 Resp 17 05/19/25 11:21 BP 144/100 H 05/19/25 11:21 Pulse Ox 98 05/19/25 11:21 O2 Del Method Room Air 05/19/25 11:21 BMI result Body Mass Index 30.4 Discharge Plan Discharge Anticipated Discharge Date/Time: 05/19/25 14:45 Patient Disposition: Left Against Medical Advice Discharge Diagnosis: etoh withdrawal Referrals: Physician,None [Primary Care Provider, Medical] - 1 Week Discharge Medications: No Action multivitamin Tablet 1 tab PO DAILY ibuprofen 200 mg Tablet 400 mg PO Q6H PRN (Reason: Pain (Scale Score 4-6)) Discharge Orders: Discharge Order (Routine); Ordered 05/19/25 Ordered By: Gilberto Cassidy Diet: Advance to usual diet Activity on Discharge: As tolerated Stand Alone Forms: Work/School Release Print Language: Welsh Care Plan Goals: recovery Health Concerns: etoh withdrawal Plan of Treatment: left ama Assessment: left ama Discharge Date/Time: 05/19/25 15:01
--- NOTE | 2025-05-19 14:49 | MHC.CM.PN ---
Pt left AMA
== END 2025-05-19 15:01 | disposition left against medical advice (07) | DRG 894 ==
LOC: HO.ED 04:17 → HO.EDOVER 06:54 → HO.IMC 14:19
PROVIDERS: Admitting Provider Hospitalist; Emergency Provider Emergency Medicine; Visit Provider Internal Medicine
DX: F10.239 Alcohol dependence with withdrawal, unspecified (principal); E66.811 Obesity, class 1; F17.210 Nicotine dependence, cigarettes, uncomplicated; Z71.6 Tobacco abuse counseling; Y90.6 Blood alcohol level of 120-199 mg/100 ml; Z68.30 Body mass index [BMI] 30.0-30.9, adult; Z71.3 Dietary counseling and surveillance; Z79.899 Other long term (current) drug therapy
CPT/HCPCS: 36415; 70450; 72125; 80048; 80076; 80307; 81001; 83690; 83735; 85025; 99285; J2405; J2560; J7120; S9485

== ENCOUNTER 2025-05-18 06:47 | Outpatient (BNV) | payer SELFPAY | END 2025-05-18 07:09 | PROVIDERS: Admitting Provider Hospitalist; Emergency Provider Emergency Medicine; Visit Provider Radiology Diagnostic Radiology | DX: Z04.3 Encounter for examination and observation following other accident (principal); F10.10 Alcohol abuse, uncomplicated; W19.XXXA Unspecified fall, initial encounter | CPT/HCPCS: 70450; 72125 ==

== ENCOUNTER → 2025-05-18 06:47 | Outpatient (BNV) | payer SELFPAY | PROVIDERS: Admitting Provider Hospitalist; Emergency Provider Emergency Medicine; Visit Provider Nurse Practitioner Psychiatric/Mental Health | DX: F10.20 Alcohol dependence, uncomplicated (principal) | CPT/HCPCS: 99221 ==

== ENCOUNTER → 2025-05-18 06:47 | Outpatient (BNV) | payer SELFPAY | PROVIDERS: Admitting Provider Hospitalist; Emergency Provider Emergency Medicine; Visit Provider Physician Assistant | DX: F10.939 Alcohol use, unspecified with withdrawal, unspecified (principal) | CPT/HCPCS: 99222; 99239; 99499 ==